=== PATIENT | male | born 1945 | race African-American/Black ===

== ENCOUNTER 2017-04-18 11:47 | Inpatient (IN) | payer MEDICARE, MEDICAID ==
[~2017-04-18] VITALS: Ht 170.2 cm; Wt 72.6 kg
[~2017-04-18 11:47] MED LIST: ALBU18HF2 IH; GLIM1TAB2 PO; LOSA50TA20 PO
[2017-04-18 14:10] LABS: BASOPHILS % 1.1 % (0.0-2.0); EOSINOPHILS % 4.6 % (0.0-5.0); HEMATOCRIT. 36.2 % (42.0-52.0); HEMOGLOBIN. 11.8 g/dL (14.0-18.0); LYMPHOCYTES % 28.4 % (20.0-50.0); MEAN CORPUSCULAR HEMOGLOBIN 25.1 pg (28.0-32.0); MEAN PLATELET VOLUME 8.5 fl (7.4-10.4); NEUTROPHILS % 58.9 % (40.0-76.0); PLATELET 198 x1000/uL (130-400); RED CELL DISTRIBUTION WIDTH 14.3 % (11.6-14.6)
[2017-04-18 14:16] LABS: INR 1.1; PROTHROMBIN TIME 11.4 sec
[2017-04-18 14:17] LABS: CLARITY URINE CLEAR (CLEAR); COLOR URINE YELLOW (YELLOW); GLUCOSE URINE NEGATIVE (NEGATIVE); KETONES URINE NEGATIVE (NEGATIVE); LEUKOCYTE ESTERASE URINE NEGATIVE (NEGATIVE); NITRITE URINE NEGATIVE (NEGATIVE); OCCULT BLOOD URINE TRACE (NEGATIVE); PH URINE 5.5 (4.5-8.0); PROTEIN URINE 1+ (NEGATIVE); SPECIFIC GRAVITY URINE 1.023 (1.005-1.030); UROBILINOGEN URINE 0.2 E.U./dL (0.2-1.0)
[2017-04-18 14:24] LABS: CARBON DIOXIDE 30 mEq/L (21-32); CHLORIDE 101 mEq/L (98-107); ETHANOL BLOOD < 10 mg/dL
[2017-04-18 14:26] LABS: TROPONIN I < 0.02 ng/mL (0.00-0.04)
[2017-04-18] MEDS ORDERED: CLONIDINE 0.1MG TABLET PO ONE (14:30)
[2017-04-18 14:53] LABS: *AMPHETAMINES SCREEN URINE NEGATIVE (NEGATIVE); *BARBITURATES SCREEN URINE NEGATIVE (NEGATIVE); *BENZODIAZEPINES SCREEN URINE NEGATIVE (NEGATIVE); *COCAINE SCREEN URINE NEGATIVE (NEGATIVE); CANNABINOID URINE SCREEN NEGATIVE (NEGATIVE); METHADONE URINE SCREEN NEGATIVE (NEGATIVE); OPIATES URINE SCREEN NEGATIVE (NEGATIVE); PHENCYCLIDINE URINE SCREEN NEGATIVE (NEGATIVE)
[2017-04-18 17:27] VITALS: BP 113/78
[2017-04-18 17:28] VITALS: BP 113/78
[2017-04-18] MEDS ORDERED: LISI-604 PO (17:44)
[2017-04-18 18:00] VITALS: BP 163/77
[2017-04-18] MEDS ORDERED: CLONIDINE 0.1MG TABLET PO PRN (18:30)
[2017-04-18] MEDS ORDERED: INSULIN LISPRO 100 UNITS/ML SUBCUT SCH (18:30)
[2017-04-18] MEDS ORDERED: DEXTROSE 50% WATER 50ML SYRINGE IV PRN (19:15)
[2017-04-18] MEDS: LOSARTAN POTASSIUM 100 MG TABLET PO SCH (19:28)
[2017-04-18 20:00] VITALS: BP 148/81
[2017-04-18] MEDS: NIFEDIPINE XL 60MG TAB PO SCH (20:00)
[2017-04-18] MEDS: BLOOD SUGAR DIAGNOSTIC STRIP TEST SCH (20:55)
[2017-04-18] MEDS: INSULIN LISPRO (LOW DOSE) 100 UNITS/ML SUBCUT SCH (20:55)
[2017-04-18 22:00] VITALS: BP 112/46
[2017-04-19] VITALS (15 sets, daily range): BP systolic 113–155; BP diastolic 57–103
[2017-04-19] MEDS: BLOOD SUGAR DIAGNOSTIC STRIP TEST SCH ×4 (06:15→21:00)
[2017-04-19] MEDS: INSULIN LISPRO (LOW DOSE) 100 UNITS/ML SUBCUT SCH ×4 (06:32→21:00)
[2017-04-19 06:38] LABS: HEMATOCRIT. 34.6 % (42.0-52.0); HEMOGLOBIN. 11.5 g/dL (14.0-18.0); MEAN CORPUSCULAR HEMOGLOBIN 25.3 pg (28.0-32.0); MEAN CORPUSCULAR VOLUME 76.3 fL (80.0-94.0); PLATELET 181 x1000/uL (130-400); RED BLOOD CELL COUNT 4.54 mill/uL (4.7-6.1); RED CELL DISTRIBUTION WIDTH 14.2 % (11.6-14.6)
[2017-04-19 06:42] LABS: CARBON DIOXIDE 29 mEq/L (21-32); CHLORIDE 102 mEq/L (98-107); HDL CHOLESTEROL 62 mg/dL (40-59); LDL CHOLESTEROL 60 mg/dL (5-100); T4 FREE 1.26 ng/dL (0.76-1.46); TROPONIN I < 0.02 ng/mL (0.00-0.04)
[2017-04-19] MEDS: IPRATROPIUM/ALBUTEROL 0.5-3(2.5)MG/3ML NEB HHN SCH ×4 (08:05→21:32)
[2017-04-19] MEDS: LOSARTAN POTASSIUM 100 MG TABLET PO SCH (08:17)
[2017-04-19] MEDS: NIFEDIPINE XL 60MG TAB PO SCH (08:17)
[2017-04-19] MEDS ORDERED: DOXAZOSIN MESYLATE 2MG TABLET PO NR (09:45)
[2017-04-19] MEDS ORDERED: COSYNTROPIN 0.25MG/ML VIAL IV NR (10:10)
[2017-04-19] MEDS: ASPIRIN 81MG EC TABLET PO SCH (11:40)
[2017-04-19] MEDS ORDERED: REGADENOSON 0.4 MG/5 ML IV NR (15:00)
[2017-04-19] MEDS: DOXAZOSIN MESYLATE 2MG TABLET PO SCH (16:10)
[2017-04-19 16:47] LABS: ATYPICAL LYMPHOCYTES 1; PLATELET ESTIMATE NORMAL
[2017-04-19 19:17] LABS: *AMPHETAMINES SCREEN URINE NEGATIVE (NEGATIVE); *BARBITURATES SCREEN URINE NEGATIVE (NEGATIVE); *BENZODIAZEPINES SCREEN URINE NEGATIVE (NEGATIVE); *COCAINE SCREEN URINE NEGATIVE (NEGATIVE); CANNABINOID URINE SCREEN NEGATIVE (NEGATIVE); METHADONE URINE SCREEN NEGATIVE (NEGATIVE); OPIATES URINE SCREEN NEGATIVE (NEGATIVE); PHENCYCLIDINE URINE SCREEN NEGATIVE (NEGATIVE)
[2017-04-20] VITALS (14 sets, daily range): BP systolic 108–168; BP diastolic 43–94
[2017-04-20] MEDS: TIMOLOL MALEATE 0.5% OPHTH DROPS 5ML EACHEYE SCH ×3 (00:13→21:00)
[2017-04-20] MEDS: IPRATROPIUM/ALBUTEROL 0.5-3(2.5)MG/3ML NEB HHN SCH ×2 (01:59→20:06)
[2017-04-20 06:25] LABS: CHLORIDE 100 mEq/L (98-107)
[2017-04-20 06:40] LABS: EOSINOPHILS % 4.8 % (0.0-5.0); HEMATOCRIT. 39.4 % (42.0-52.0); HEMOGLOBIN. 12.9 g/dL (14.0-18.0); LYMPHOCYTES % 29.5 % (20.0-50.0); MEAN CORPUSCULAR HEMOGLOBIN 24.9 pg (28.0-32.0); MEAN CORPUSCULAR VOLUME 76.1 fL (80.0-94.0); MEAN PLATELET VOLUME 8.5 fl (7.4-10.4); MONOCYTES % 7.3 % (2.0-8.0); NEUTROPHILS % 57.4 % (40.0-76.0); PLATELET 208 x1000/uL (130-400); RED BLOOD CELL COUNT 5.17 mill/uL (4.7-6.1); RED CELL DISTRIBUTION WIDTH 14.4 % (11.6-14.6)
[2017-04-20] MEDS: INSULIN LISPRO (LOW DOSE) 100 UNITS/ML SUBCUT SCH ×4 (06:41→21:03)
[2017-04-20] MEDS: BLOOD SUGAR DIAGNOSTIC STRIP TEST SCH ×4 (06:41→21:00)
[2017-04-20 07:00] LABS: CARBON DIOXIDE 25 mEq/L (21-32); TROPONIN I < 0.02 ng/mL (0.00-0.04)
[2017-04-20 08:19] LABS: ALBUMIN 3.4 g/dL (2.9-4.4); ALPHA-1-GLOBULIN 0.2 g/dL (0.0-0.4); ALPHA-2-GLOBULIN 0.7 g/dL (0.4-1.0); GAMMA GLOBULINS 1.4 g/dL (0.4-1.8); GLOBULIN TOTAL 3.4 g/dL (2.2-3.9); M-SPIKE Not Observed g/dL (Not Observed); TOTAL PROTEIN SERUM 6.8 g/dL (6.0-8.5)
[2017-04-20] MEDS ORDERED: REGADENOSON 0.4 MG/5 ML IV ONE (08:34)
[2017-04-20] MEDS ORDERED: NITROGLYCERIN 50MCG/ML 10ML VIAL (CATH LAB) IV ONE (09:44)
[2017-04-20] MEDS ORDERED: NICARDIPINE 100MCG/ML 10ML VIAL (CATH LAB) IV ONE (09:44)
[2017-04-20] MEDS: DOXAZOSIN MESYLATE 2MG TABLET PO SCH ×2 (10:00→18:14)
[2017-04-20 10:09] LABS: *CREATININE RANDOM URINE 109.8 mg/dL (Not Estab.); MICROALBUMIN RANDOM URINE 39.2 ug/mL (Not Estab.); MICROALBUMIN/CREATININE RATIO 35.7 mg/g creat (0.0-30.0)
[2017-04-20] MEDS: LOSARTAN POTASSIUM 100 MG TABLET PO SCH (10:16)
[2017-04-20] MEDS: ASPIRIN 81MG EC TABLET PO SCH (10:16)
[2017-04-20] MEDS: NIFEDIPINE XL 60MG TAB PO SCH (10:17)
[2017-04-20] MEDS ORDERED: FENTANYL CITRATE/PF 50MCG/ML 2ML VIAL ONE (12:05)
[2017-04-20] MEDS ORDERED: MIDAZOLAM HCL 2 MG/2 ML VIAL ONE (12:05)
[2017-04-20] MEDS ORDERED: LIDOCAINE HCL 1% 20ML VIAL (Pyxis) INJ ONE (12:06)
[2017-04-20] MEDS ORDERED: IODIXANOL 320MG/ML 100 ML BOTTLE IV ONE ×2 (12:06→14:21)
[2017-04-20] MEDS ORDERED: ASPIRIN/SOD BICARB/CITRIC ACID 324MG TAB EFF ONE (12:12)
[2017-04-20] MEDS: SODIUM CHLORIDE 0.45% 1,000 ML IV SCH ×2 (12:33→16:31)
[2017-04-20] MEDS ORDERED: HEPARIN SODIUM 1,000 UNIT/1ML VIAL IV ONE ×3 (12:39→13:58)
[2017-04-20] MEDS ORDERED: IOVERSOL 240MG/ML 100ML BOTTLE IV ONE (13:59)
[2017-04-20] MEDS ORDERED: ATROPINE SULFATE 0.1MG/ML 10ML DISP.SYRIN ONE (14:08)
[2017-04-20] MEDS ORDERED: CLOPIDOGREL 75MG TABLET ONE (14:36)
[2017-04-20] MEDS ORDERED: ACETAMINOPHEN 325MG TABLET PO PRN (14:45)
[2017-04-20] MEDS ORDERED: ATROPINE SULFATE 1MG/10ML SYR IV PRN (14:45)
[2017-04-20] MEDS ORDERED: MORPHINE SULFATE 2 MG/ML CPJ (NOT FOR IM USE) IV PRN (14:45)
[2017-04-20] MEDS ORDERED: CLOPIDOGREL 75MG TABLET PO ONE (14:45)
[2017-04-20] MEDS ORDERED: SODIUM CHLORIDE 0.45% 1,000 ML IV ONE (14:45)
[2017-04-20] MEDS ORDERED: ONDANSETRON HCL 4MG/2ML VIAL IV PRN (14:45)
[2017-04-21] VITALS (7 sets, daily range): BP systolic 99–127; BP diastolic 42–65
[2017-04-21] MEDS: SODIUM CHLORIDE 0.45% 1,000 ML IV SCH ×2 (00:05→06:45)
[2017-04-21] MEDS: IPRATROPIUM/ALBUTEROL 0.5-3(2.5)MG/3ML NEB HHN SCH ×2 (01:27→07:22)
[2017-04-21 06:04] LABS: CARBON DIOXIDE 25 mEq/L (21-32); CHLORIDE 102 mEq/L (98-107)
[2017-04-21 06:29] LABS: BASOPHILS % 0.9 % (0.0-2.0); EOSINOPHILS % 4.6 % (0.0-5.0); HEMATOCRIT. 39.5 % (42.0-52.0); HEMOGLOBIN. 12.7 g/dL (14.0-18.0); LYMPHOCYTES % 36.2 % (20.0-50.0); MEAN CORPUSCULAR HEMOGLOBIN 24.9 pg (28.0-32.0); MEAN CORPUSCULAR VOLUME 77.4 fL (80.0-94.0); MEAN PLATELET VOLUME 8.3 fl (7.4-10.4); MONOCYTES % 9.4 % (2.0-8.0); NEUTROPHILS % 48.9 % (40.0-76.0); PLATELET 192 x1000/uL (130-400); RED CELL DISTRIBUTION WIDTH 14.7 % (11.6-14.6)
[2017-04-21] MEDS: BLOOD SUGAR DIAGNOSTIC STRIP TEST SCH (06:50)
[2017-04-21] MEDS: INSULIN LISPRO (LOW DOSE) 100 UNITS/ML SUBCUT SCH (06:50)
[2017-04-21] MEDS: DOXAZOSIN MESYLATE 2MG TABLET PO SCH (08:11)
[2017-04-21] MEDS: NIFEDIPINE XL 60MG TAB PO SCH (08:11)
[2017-04-21] MEDS: TIMOLOL MALEATE 0.5% OPHTH DROPS 5ML EACHEYE SCH (08:11)
[2017-04-21] MEDS: LOSARTAN POTASSIUM 100 MG TABLET PO SCH (08:12)
[2017-04-21] MEDS ORDERED: CLOPIDOGREL 75MG TABLET PO SCH (09:00)
[2017-04-21] MEDS ORDERED: ASPIRIN 325MG TABLET PO SCH (09:00)
[2017-04-23 13:12] LABS: DOPAMINE PLASMA <30 pg/mL (0-48); EPINEPHRINE PLASMA <15 pg/mL (0-62); NOREPINEPHRINE PLASMA 214 pg/mL (0-874)
[2017-04-25 06:15] LABS: ALDOSTERONE 3.9 ng/dL (0.0-30.0)
== END 2017-04-21 12:25 | disposition home or self-care (01) | DRG 247 ==
LOC: ER 11:47 → 3WST 14:31 → ENRESERV 15:57
PROVIDERS: ADMIT Internal Medicine Endocrinology, Diabetes & Metabolism; ATTEND Internal Medicine Endocrinology, Diabetes & Metabolism
PROC: 027034Z Dilation of Coronary Artery, One Artery with Drug-eluting Intraluminal Device, Percutaneous Approach (ICD-10-PCS; principal; 2017-04-20)
PROC: 4A023N7 Measurement of Cardiac Sampling and Pressure, Left Heart, Percutaneous Approach (ICD-10-PCS; 2017-04-20)
PROC: B2151ZZ Fluoroscopy of Left Heart using Low Osmolar Contrast (ICD-10-PCS; 2017-04-20)
PROC: B2111ZZ Fluoroscopy of Multiple Coronary Arteries using Low Osmolar Contrast (ICD-10-PCS; 2017-04-20)
DX: I16.0 Hypertensive urgency (principal); N17.9 Acute kidney failure, unspecified; I69.351 Hemiplegia and hemiparesis following cerebral infarction affecting right dominant side; I13.10 Hypertensive heart and chronic kidney disease without heart failure, with stage 1 through stage 4 chronic kidney disease, or unspecified chronic kidney disease; I25.10 Atherosclerotic heart disease of native coronary artery without angina pectoris; D64.9 Anemia, unspecified; D72.819 Decreased white blood cell count, unspecified; E11.22 Type 2 diabetes mellitus with diabetic chronic kidney disease; E78.00 Pure hypercholesterolemia, unspecified; E86.0 Dehydration; E78.5 Hyperlipidemia, unspecified; H10.10 Acute atopic conjunctivitis, unspecified eye; H40.10X0 Unspecified open-angle glaucoma, stage unspecified; J44.9 Chronic obstructive pulmonary disease, unspecified; N18.2 Chronic kidney disease, stage 2 (mild); Z82.0 Family history of epilepsy and other diseases of the nervous system; Z79.899 Other long term (current) drug therapy; Z83.3 Family history of diabetes mellitus; Z87.891 Personal history of nicotine dependence; Z91.14 Patient's other noncompliance with medication regimen
CPT/HCPCS: 36415; 70450; 71010; 78452; 80048; 80053; 80061; 80305; 81001; 82024; 82043; 82088; 82533; 82570; 82607; 82962; 83036; 83735; 83835; 83880; 83921; 84155; 84165; 84439; 84443; 84484; 85007; 85025; 85027; 85347; 85610; 87077; 87086; 87186; 92928; 93005; 93017; 93306; 93458; 93880; 94640; 99285; A9500; C1725; C1769; C1887; C1893; G0482; J0461; J0834; J1644; J1815; J2250; J2785; J3010; J3490; J7620; Q9967

== ENCOUNTER 2017-06-26 06:36 | Inpatient (IN) | payer MEDICARE, MEDICAID ==
[~2017-06-26] VITALS: Ht 172.7 cm; Wt 75.9 kg
[2017-06-26] VITALS (36 sets, daily range): BP systolic 115–171; BP diastolic 51–120
[~2017-06-26 06:36] MED LIST changes: -LOSA50TA20 PO
[2017-06-26] MEDS ORDERED: LOSA100T14 PO (08:12)
[2017-06-26] MEDS ORDERED: CLOP75TA16 PO (08:12)
[2017-06-26] MEDS ORDERED: ASPI-1159 PO (08:12)
[2017-06-26] MEDS ORDERED: NIFE30TA94 PO (08:12)
[2017-06-26] MEDS ORDERED: COR3 PO (08:12)
[2017-06-26] MEDS ORDERED: IODIXANOL 320MG/ML 100 ML BOTTLE IV ONE ×2 (08:29→09:29)
[2017-06-26] MEDS ORDERED: LIDOCAINE HCL 1% 20ML VIAL (Pyxis) INJ ONE (08:30)
[2017-06-26] MEDS ORDERED: MIDAZOLAM HCL 2 MG/2 ML VIAL ONE ×2 (08:32→09:32)
[2017-06-26] MEDS ORDERED: FENTANYL CITRATE/PF 50MCG/ML 2ML VIAL ONE (08:32)
[2017-06-26] MEDS ORDERED: ASPIRIN/SOD BICARB/CITRIC ACID 324MG TAB EFF ONE (08:35)
[2017-06-26 09:00] LABS: CARBON DIOXIDE 29 mEq/L (21-32); CHLORIDE 104 mEq/L (98-107)
[2017-06-26] MEDS ORDERED: IOVERSOL 240MG/ML 100ML BOTTLE IV ONE (09:13)
[2017-06-26] MEDS ORDERED: CLOPIDOGREL 75MG TABLET ONE (09:56)
[2017-06-26] MEDS ORDERED: MORPHINE SULFATE 4 MG/ML CPJ (NOT FOR IM USE) IV PRN (10:00)
[2017-06-26] MEDS ORDERED: ATROPINE SULFATE 1MG/10ML SYR IV PRN (10:00)
[2017-06-26] MEDS ORDERED: ACETAMINOPHEN 325MG TABLET PO PRN (10:00)
[2017-06-26] MEDS ORDERED: DEXTROSE 50% WATER 50ML SYRINGE IV PRN (10:15)
[2017-06-26] MEDS ORDERED: CLOPIDOGREL 75MG TABLET PO NR (11:00)
[2017-06-26] MEDS: SODIUM CHLORIDE 0.45% 1,000 ML IV NR ×2 (11:42→17:28)
[2017-06-26] MEDS: BLOOD SUGAR DIAGNOSTIC STRIP TEST SCH ×3 (11:43→20:31)
[2017-06-26] MEDS: INSULIN LISPRO 100 UNITS/ML SUBCUT SCH ×3 (11:43→20:31)
[2017-06-26] MEDS: LOSARTAN POTASSIUM 50 MG TABLET PO SCH ×2 (12:06→21:25)
[2017-06-26] MEDS: AMLODIPINE 5MG TABLET PO SCH ×2 (12:07→22:10)
[2017-06-26] MEDS: CARVEDILOL 3.125 MG TABLET PO SCH ×2 (12:21→21:23)
[2017-06-26] MEDS ORDERED: HEPARIN SODIUM 1,000 UNIT/1ML VIAL IV ONE (15:52)
[2017-06-27] VITALS (9 sets, daily range): BP systolic 110–149; BP diastolic 44–67
[2017-06-27] MEDS: BLOOD SUGAR DIAGNOSTIC STRIP TEST SCH (06:39)
[2017-06-27] MEDS: INSULIN LISPRO 100 UNITS/ML SUBCUT SCH (06:40)
[2017-06-27 07:19] LABS: BASOPHILS % 0.8 % (0.0-2.0); EOSINOPHILS % 4.2 % (0.0-5.0); HEMATOCRIT. 33.7 % (42.0-52.0); HEMOGLOBIN. 11.4 g/dL (14.0-18.0); LYMPHOCYTES % 14.6 % (20.0-50.0); MEAN CORPUSCULAR HEMOGLOBIN 25.9 pg (28.0-32.0); MEAN CORPUSCULAR VOLUME 76.8 fL (80.0-94.0); MEAN PLATELET VOLUME 8.2 fl (7.4-10.4); MONOCYTES % 5.9 % (2.0-8.0); NEUTROPHILS % 74.5 % (40.0-76.0); PLATELET 186 x1000/uL (130-400); RED BLOOD CELL COUNT 4.39 mill/uL (4.7-6.1)
[2017-06-27 07:49] LABS: CARBON DIOXIDE 28 mEq/L (21-32); CHLORIDE 104 mEq/L (98-107)
[2017-06-27] MEDS: LOSARTAN POTASSIUM 50 MG TABLET PO SCH (08:25)
[2017-06-27] MEDS: AMLODIPINE 5MG TABLET PO SCH (08:26)
[2017-06-27] MEDS: CARVEDILOL 3.125 MG TABLET PO SCH (08:26)
[2017-06-27] MEDS ORDERED: CLOPIDOGREL 75MG TABLET PO SCH (09:00)
[2017-06-27] MEDS ORDERED: ASPIRIN 325MG TABLET PO SCH (09:00)
[2017-06-27] MEDS ORDERED: ASPI-1159 PO (10:00)
[2017-06-27] MEDS ORDERED: ASPI-864 PO (10:14)
== END 2017-06-27 11:30 | disposition home or self-care (01) | DRG 247 ==
LOC: CCL 06:36 → 3WST 06:37
PROVIDERS: ADMIT Specialist; ATTEND Specialist
PROC: 027135Z Dilation of Coronary Artery, Two Arteries with Two Drug-eluting Intraluminal Devices, Percutaneous Approach (ICD-10-PCS; principal; 2017-06-26)
PROC: 4A023N7 Measurement of Cardiac Sampling and Pressure, Left Heart, Percutaneous Approach (ICD-10-PCS; 2017-06-26)
PROC: B2111ZZ Fluoroscopy of Multiple Coronary Arteries using Low Osmolar Contrast (ICD-10-PCS; 2017-06-26)
PROC: B2151ZZ Fluoroscopy of Left Heart using Low Osmolar Contrast (ICD-10-PCS; 2017-06-26)
DX: I25.10 Atherosclerotic heart disease of native coronary artery without angina pectoris (principal); E11.22 Type 2 diabetes mellitus with diabetic chronic kidney disease; I13.10 Hypertensive heart and chronic kidney disease without heart failure, with stage 1 through stage 4 chronic kidney disease, or unspecified chronic kidney disease; D64.9 Anemia, unspecified; E78.00 Pure hypercholesterolemia, unspecified; E11.51 Type 2 diabetes mellitus with diabetic peripheral angiopathy without gangrene; J44.9 Chronic obstructive pulmonary disease, unspecified; N18.2 Chronic kidney disease, stage 2 (mild); Z79.02 Long term (current) use of antithrombotics/antiplatelets; I25.2 Old myocardial infarction; Z79.899 Other long term (current) drug therapy
CPT/HCPCS: 36415; 80048; 82962; 85025; 85347; 85730; 92928; 93005; 93458; 93571; C1725; C1726; C1769; C1887; C1893; J1644; J2250; J3010; J3490; Q9967

== ENCOUNTER 2017-11-02 05:38 | Emergency (ER) | payer MEDICARE, MEDICAID ==
[~2017-11-02] VITALS: Ht 170.2 cm; Wt 76.0 kg
[~2017-11-02 05:38] MED LIST changes: +ASPI-864 PO; +CLOP75TA16 PO; +COR3 PO; +LOSA100T14 PO; +NIFE30TA94 PO
[2017-11-02 08:02] VITALS: BP 172/73
== END 2017-11-02 08:07 | disposition home or self-care (01) ==
LOC: ER 06:10
DX: J30.9 Allergic rhinitis, unspecified (principal); E11.9 Type 2 diabetes mellitus without complications; I10 Essential (primary) hypertension; H57.8 Other specified disorders of eye and adnexa; Z87.891 Personal history of nicotine dependence; Z79.82 Long term (current) use of aspirin; Z95.5 Presence of coronary angioplasty implant and graft; Z88.8 Allergy status to other drugs, medicaments and biological substances
CPT/HCPCS: 82962; 99283

== ENCOUNTER 2018-02-10 00:36 | Inpatient (IN) | payer MEDICARE, MEDICAID ==
[~2018-02-10] VITALS: Ht 170.2 cm; Wt 79.8 kg
[2018-02-10] MEDS ORDERED: MORPHINE SULFATE 4 MG/ML CPJ (NOT FOR IM USE) IV STA (02:44)
[2018-02-10] MEDS ORDERED: ASPIRIN 81MG TABLET PO ONE (02:45)
[2018-02-10 03:17] LABS: EOSINOPHILS % 5.2 % (0.0-5.0); HEMATOCRIT. 37.5 % (42.0-52.0); HEMOGLOBIN. 12.1 g/dL (14.0-18.0); LYMPHOCYTES % 26.4 % (20.0-50.0); MEAN CORPUSCULAR HEMOGLOBIN 25.6 pg (28.0-32.0); MEAN CORPUSCULAR VOLUME 79.3 fL (80.0-94.0); MEAN PLATELET VOLUME 8.1 fl (7.4-10.4); MONOCYTES % 7.4 % (2.0-8.0); PLATELET 204 x1000/uL (130-400); RED BLOOD CELL COUNT 4.74 mill/uL (4.7-6.1); RED CELL DISTRIBUTION WIDTH 14.6 % (11.6-14.6)
[2018-02-10 03:23] LABS: CHLORIDE 104 mEq/L (98-107); PROTHROMBIN TIME 10.7 sec (9.4-11.6)
[2018-02-10 03:28] LABS: AMMONIA 31 uMol/L (<32); ETHANOL BLOOD < 10 mg/dL
[2018-02-10] MEDS ORDERED: SODIUM CHLORIDE 0.9% 1,000 ML IV NR (04:30)
[2018-02-10 05:46] LABS: CLARITY URINE CLEAR (CLEAR); COLOR URINE YELLOW (YELLOW); KETONES URINE NEGATIVE (NEGATIVE); LEUKOCYTE ESTERASE URINE NEGATIVE (NEGATIVE); NITRITE URINE NEGATIVE (NEGATIVE); OCCULT BLOOD URINE NEGATIVE (NEGATIVE); PROTEIN URINE NEGATIVE (NEGATIVE); SPECIFIC GRAVITY URINE 1.019 (1.005-1.030); UROBILINOGEN URINE 0.2 E.U./dL (0.2-1.0)
[2018-02-10 05:59] LABS: *AMPHETAMINES SCREEN URINE NEGATIVE (NEGATIVE); *BARBITURATES SCREEN URINE NEGATIVE (NEGATIVE); *BENZODIAZEPINES SCREEN URINE NEGATIVE (NEGATIVE); *COCAINE SCREEN URINE NEGATIVE (NEGATIVE); METHADONE URINE SCREEN NEGATIVE (NEGATIVE)
[2018-02-10 06:00] LABS: CANNABINOID URINE SCREEN NEGATIVE (NEGATIVE); OPIATES URINE SCREEN PRESUMTIVE POSITIVE (NEGATIVE); PHENCYCLIDINE URINE SCREEN NEGATIVE (NEGATIVE)
[2018-02-10] MEDS ORDERED: LIDOCAINE HCL 1% 20ML VIAL (Pyxis) INJ ONE (07:11)
[2018-02-10] MEDS ORDERED: IOHEXOL-350 100 ML BOTTLE ONE ×2 (07:43→09:01)
[2018-02-10 10:00] VITALS: BP 156/76
[2018-02-10 11:02] VITALS: BP 156/76
[2018-02-10] MEDS ORDERED: AMLO10TA4 MT (11:18)
[2018-02-10 12:00] VITALS: BP 151/67
[2018-02-10] MEDS ORDERED: ONDANSETRON HCL 4MG/2ML VIAL IV PRN (13:00)
[2018-02-10] MEDS ORDERED: GUAIFENESIN 200MG/10ML SUGAR FREE UDC PO PRN (13:00)
[2018-02-10] MEDS ORDERED: DEXTROSE 50% WATER 50ML SYRINGE IV PRN ×2 (13:30)
[2018-02-10] MEDS: AMLODIPINE 10MG TABLET PO SCH (13:41)
[2018-02-10] MEDS: LOSARTAN POTASSIUM 100 MG TABLET PO SCH (13:41)
[2018-02-10] MEDS: CLOPIDOGREL 75MG TABLET PO SCH (13:42)
[2018-02-10] MEDS ORDERED: INSULIN LISPRO 100 UNITS/ML SUBCUT NR (14:00)
[2018-02-10] MEDS: GLIMEPIRIDE 1MG TABLET PO SCH (17:03)
[2018-02-10] MEDS: CLONIDINE 0.1MG TABLET PO PRN (17:06)
[2018-02-10] MEDS: BLOOD SUGAR DIAGNOSTIC STRIP TEST SCH ×2 (18:14→20:50)
[2018-02-10] MEDS: INSULIN LISPRO 100 UNITS/ML SUBCUT SCH ×2 (18:37→20:50)
[2018-02-10 20:00] VITALS: BP_SYST 129; BP_SYST 133; BP_DIAS 54; BP_DIAS 61; BP_DIAS 66
[2018-02-10] MEDS: CARVEDILOL 3.125 MG TABLET PO SCH (20:46)
[2018-02-11] VITALS (7 sets, daily range): BP systolic 118–167; BP diastolic 47–79
[2018-02-11 06:51] LABS: BASOPHILS % 0.9 % (0.0-2.0); EOSINOPHILS % 6.2 % (0.0-5.0); HEMATOCRIT. 32.8 % (42.0-52.0); HEMOGLOBIN. 10.8 g/dL (14.0-18.0); LYMPHOCYTES % 22.1 % (20.0-50.0); MEAN CORPUSCULAR HEMOGLOBIN 25.7 pg (28.0-32.0); MEAN CORPUSCULAR VOLUME 78.3 fL (80.0-94.0); MEAN PLATELET VOLUME 7.9 fl (7.4-10.4); MONOCYTES % 8.4 % (2.0-8.0); NEUTROPHILS % 62.4 % (40.0-76.0); PLATELET 177 x1000/uL (130-400); RED BLOOD CELL COUNT 4.19 mill/uL (4.7-6.1); RED CELL DISTRIBUTION WIDTH 14.7 % (11.6-14.6)
[2018-02-11] MEDS: CLONIDINE 0.1MG TABLET PO PRN (07:40)
[2018-02-11] MEDS: BLOOD SUGAR DIAGNOSTIC STRIP TEST SCH ×4 (07:40→21:30)
[2018-02-11] MEDS: INSULIN LISPRO 100 UNITS/ML SUBCUT SCH ×4 (08:10→21:31)
[2018-02-11] MEDS: PANTOPRAZOLE 40MG DR TABLET PO SCH (08:44)
[2018-02-11] MEDS: ASPIRIN 81MG EC TABLET PO SCH (08:44)
[2018-02-11] MEDS: AMLODIPINE 10MG TABLET PO SCH (08:50)
[2018-02-11] MEDS: GLIMEPIRIDE 1MG TABLET PO SCH ×2 (08:52→16:09)
[2018-02-11] MEDS: CLOPIDOGREL 75MG TABLET PO SCH (08:52)
[2018-02-11] MEDS: CARVEDILOL 3.125 MG TABLET PO SCH ×2 (08:52→21:30)
[2018-02-11] MEDS: LOSARTAN POTASSIUM 100 MG TABLET PO SCH (08:52)
[2018-02-11] MEDS ORDERED: ONDANSETRON HCL 4MG TABLET PO PRN (16:00)
[2018-02-11 16:58] LABS: CREATINE KINASE 231 IU/L (39-308)
[2018-02-11] MEDS ORDERED: VANCOMYCIN 1500MG in DEXTROSE 5% WATER 250ML IV NR (18:00)
[2018-02-12] VITALS: BP 172/71
[2018-02-12] MEDS: ACETAMINOPHEN 325MG TABLET PO PRN ×2 (00:59→20:02)
[2018-02-12 04:00] VITALS: BP 164/68
[2018-02-12] MEDS: CLONIDINE 0.1MG TABLET PO PRN ×2 (06:15→20:03)
[2018-02-12] MEDS: BLOOD SUGAR DIAGNOSTIC STRIP TEST SCH ×4 (06:32→21:12)
[2018-02-12 06:58] LABS: BASOPHILS % 0.5 % (0.0-2.0); EOSINOPHILS % 4.9 % (0.0-5.0); HEMATOCRIT. 31.9 % (42.0-52.0); HEMOGLOBIN. 10.7 g/dL (14.0-18.0); LYMPHOCYTES % 15.3 % (20.0-50.0); MEAN CORPUSCULAR HEMOGLOBIN 25.9 pg (28.0-32.0); MEAN CORPUSCULAR VOLUME 76.9 fL (80.0-94.0); MONOCYTES % 7.2 % (2.0-8.0); NEUTROPHILS % 72.1 % (40.0-76.0); PLATELET 182 x1000/uL (130-400); RED BLOOD CELL COUNT 4.15 mill/uL (4.7-6.1); RED CELL DISTRIBUTION WIDTH 14.7 % (11.6-14.6)
[2018-02-12 07:26] LABS: CHLORIDE 106 mEq/L (98-107)
[2018-02-12 07:43] LABS: LDL CHOLESTEROL 63 mg/dL (5-100)
[2018-02-12 07:44] LABS: CREATINE KINASE 215 IU/L (39-308); HDL CHOLESTEROL 67 mg/dL (40-59)
[2018-02-12 08:00] VITALS: BP 104/55
[2018-02-12] MEDS: INSULIN LISPRO 100 UNITS/ML SUBCUT SCH ×4 (08:10→21:13)
[2018-02-12] MEDS: LOSARTAN POTASSIUM 100 MG TABLET PO SCH (08:50)
[2018-02-12] MEDS: PANTOPRAZOLE 40MG DR TABLET PO SCH (08:50)
[2018-02-12] MEDS: GLIMEPIRIDE 1MG TABLET PO SCH ×2 (08:50→17:06)
[2018-02-12] MEDS: CLOPIDOGREL 75MG TABLET PO SCH (08:50)
[2018-02-12] MEDS: ASPIRIN 81MG EC TABLET PO SCH (08:50)
[2018-02-12] MEDS: CARVEDILOL 3.125 MG TABLET PO SCH ×2 (09:00→20:03)
[2018-02-12] MEDS: AMLODIPINE 10MG TABLET PO SCH (09:00)
[2018-02-12] MEDS ORDERED: VANCOMYCIN 750 MG PREMIX 150 ML IV SCH (11:00)
[2018-02-12 12:00] VITALS: BP_SYST 123; BP_SYST 146; BP_SYST 155; BP_DIAS 69; BP_DIAS 72; BP_DIAS 75
[2018-02-12 16:00] VITALS: BP 131/61
[2018-02-12] MEDS ORDERED: CLOPIDOGREL 75MG TABLET PO SCH (17:00)
[2018-02-12 17:23] LABS: TOTAL IRON BINDING CAPACITY 203 ug/dL (250-450)
[2018-02-12 17:57] LABS: VITAMIN B12 SERUM 630 pg/mL (211-911)
[2018-02-12 18:09] LABS: FOLIC ACID (FOLATE) SERUM > 20.00 ng/mL (>5.38)
[2018-02-12 20:00] VITALS: BP 174/78
[2018-02-13] VITALS: BP 160/68
[2018-02-13] MEDS ORDERED: VANCOMYCIN 1250MG in DEXTROSE 5% WATER 250ML IV SCH ×2
[2018-02-13 04:00] VITALS: BP 140/55
[2018-02-13] MEDS: BLOOD SUGAR DIAGNOSTIC STRIP TEST SCH ×2 (05:53→12:01)
[2018-02-13] MEDS: INSULIN LISPRO 100 UNITS/ML SUBCUT SCH ×2 (07:04→13:54)
[2018-02-13 07:25] LABS: BASOPHILS % 0.8 % (0.0-2.0); EOSINOPHILS % 5.8 % (0.0-5.0); HEMATOCRIT. 31.7 % (42.0-52.0); HEMOGLOBIN. 10.6 g/dL (14.0-18.0); LYMPHOCYTES % 24.9 % (20.0-50.0); MEAN CORPUSCULAR HEMOGLOBIN 25.7 pg (28.0-32.0); MEAN CORPUSCULAR VOLUME 77.2 fL (80.0-94.0); MEAN PLATELET VOLUME 8.3 fl (7.4-10.4); MONOCYTES % 7.9 % (2.0-8.0); NEUTROPHILS % 60.6 % (40.0-76.0); PLATELET 186 x1000/uL (130-400); RED BLOOD CELL COUNT 4.11 mill/uL (4.7-6.1); RED CELL DISTRIBUTION WIDTH 14.5 % (11.6-14.6)
[2018-02-13 07:55] LABS: CHLORIDE 104 mEq/L (98-107)
[2018-02-13 08:00] VITALS: BP 153/62
[2018-02-13] MEDS: ASPIRIN 81MG EC TABLET PO SCH (08:30)
[2018-02-13] MEDS: CARVEDILOL 3.125 MG TABLET PO SCH (08:30)
[2018-02-13] MEDS: GLIMEPIRIDE 1MG TABLET PO SCH (08:30)
[2018-02-13] MEDS: LOSARTAN POTASSIUM 100 MG TABLET PO SCH (08:31)
[2018-02-13] MEDS: AMLODIPINE 10MG TABLET PO SCH (08:31)
[2018-02-13] MEDS: CLOPIDOGREL 75MG TABLET PO SCH (08:31)
[2018-02-13] MEDS ORDERED: FAMOTIDINE 20MG TABLET PO SCH (09:00)
[2018-02-13 11:16] VITALS: BP 148/61
[2018-02-13 12:00] VITALS: BP 148/61
== END 2018-02-13 15:40 | disposition home or self-care (01) | DRG 74 ==
LOC: ER 00:36 → 7WST 06:30 → EDBEDREQ 06:33
PROVIDERS: ADMIT Internal Medicine Nephrology; ATTEND Internal Medicine Nephrology
PROC: 02HV33Z Insertion of Infusion Device into Superior Vena Cava, Percutaneous Approach (ICD-10-PCS; principal; 2018-02-10)
PROC: B548ZZA Ultrasonography of Superior Vena Cava, Guidance (ICD-10-PCS; 2018-02-10)
PROC: B5181ZA Fluoroscopy of Superior Vena Cava using Low Osmolar Contrast, Guidance (ICD-10-PCS; 2018-02-10)
PROC: 4A00X4Z Measurement of Central Nervous Electrical Activity, External Approach (ICD-10-PCS; 2018-02-10)
DX: G90.8 Other disorders of autonomic nervous system (principal); E11.22 Type 2 diabetes mellitus with diabetic chronic kidney disease; E11.65 Type 2 diabetes mellitus with hyperglycemia; W01.0XXA Fall on same level from slipping, tripping and stumbling without subsequent striking against object, initial encounter; D63.8 Anemia in other chronic diseases classified elsewhere; I13.10 Hypertensive heart and chronic kidney disease without heart failure, with stage 1 through stage 4 chronic kidney disease, or unspecified chronic kidney disease; N18.9 Chronic kidney disease, unspecified; E78.00 Pure hypercholesterolemia, unspecified; I25.10 Atherosclerotic heart disease of native coronary artery without angina pectoris; N40.0 Benign prostatic hyperplasia without lower urinary tract symptoms; Z95.5 Presence of coronary angioplasty implant and graft; Z79.02 Long term (current) use of antithrombotics/antiplatelets; Z87.891 Personal history of nicotine dependence; Z79.899 Other long term (current) drug therapy; Z79.84 Long term (current) use of oral hypoglycemic drugs; Y93.89 Activity, other specified; Y92.89 Other specified places as the place of occurrence of the external cause; Y99.8 Other external cause status; Z88.8 Allergy status to other drugs, medicaments and biological substances; Z79.82 Long term (current) use of aspirin; I69.398 Other sequelae of cerebral infarction
CPT/HCPCS: 36415; 36569; 70450; 70544; 70553; 71045; 71250; 71275; 74174; 74176; 76937; 77001; 80048; 80051; 80053; 80061; 80305; 81003; 82140; 82550; 82607; 82746; 82962; 83036; 83540; 83550; 83605; 83690; 83735; 83880; 84443; 84484; 85025; 85044; 85379; 85610; 87040; 87086; 93005; 93306; 93880; 93970; 96374; 97162; 97167; 99285; C1725; G0482; J1815; J2270; J3370; J3490; J7030; J7050; J7060; Q9967

== ENCOUNTER 2018-03-30 04:40 | Emergency (ER) | payer MEDICARE, MEDICAID ==
[~2018-03-30] VITALS: Ht 167.6 cm; Wt 79.0 kg
[~2018-03-30 04:40] MED LIST changes: +AMLO10TA4 MT
[2018-03-30 05:54] LABS: BASOPHILS % 0.9 % (0.0-2.0); EOSINOPHILS % 4.7 % (0.0-5.0); HEMATOCRIT. 38.2 % (42.0-52.0); HEMOGLOBIN. 12.3 g/dL (14.0-18.0); MEAN CORPUSCULAR HEMOGLOBIN 25.3 pg (28.0-32.0); MEAN CORPUSCULAR VOLUME 78.7 fL (80.0-94.0); MEAN PLATELET VOLUME 7.7 fl (7.4-10.4); MONOCYTES % 8.4 % (2.0-8.0); PLATELET 207 x1000/uL (130-400); RED BLOOD CELL COUNT 4.86 mill/uL (4.7-6.1); RED CELL DISTRIBUTION WIDTH 14.2 % (11.6-14.6)
[2018-03-30 05:56] LABS: CHLORIDE 106 mEq/L (98-107)
[2018-03-30] MEDS ORDERED: FLUORESCEIN SODIUM 1MG/STRIP LEFTEYE ONE (06:30)
[2018-03-30] MEDS ORDERED: TETRACAINE 0.5% OPHTH DROPS 4ML LEFTEYE ONE (06:30)
[2018-03-30] MEDS ORDERED: SODIUM CHLORIDE 0.9% 1,000 ML IV ONE (06:34)
[2018-03-30] MEDS ORDERED: MECLIZINE 25MG TABLET PO ONE (06:45)
[2018-03-30 11:15] VITALS: BP 161/70
== END 2018-03-30 11:17 | disposition home or self-care (01) ==
LOC: ER 04:40
DX: R42 Dizziness and giddiness (principal); I10 Essential (primary) hypertension; G93.89 Other specified disorders of brain; I69.351 Hemiplegia and hemiparesis following cerebral infarction affecting right dominant side; E11.9 Type 2 diabetes mellitus without complications; Z79.899 Other long term (current) drug therapy
CPT/HCPCS: 36415; 70450; 80053; 84484; 85025; 93005; 99285; C1893; J7030; J8597

== ENCOUNTER 2018-05-10 11:00 | Emergency (ER) | payer MEDICARE, MEDICAID ==
[~2018-05-10] VITALS: Ht 170.2 cm; Wt 66.0 kg
[2018-05-10] MEDS ORDERED: ALBUTEROL (0.083%) 2.5MG/3ML NEB HHN STA (11:49)
[2018-05-10] MEDS ORDERED: IPRATROPIUM BROMIDE (0.02%) 0.5MG/2.5ML NEB HHN STA (11:49)
[2018-05-10 13:13] LABS: BASOPHILS % 0.6 % (0.0-2.0); EOSINOPHILS % 3.8 % (0.0-5.0); HEMATOCRIT. 38.3 % (42.0-52.0); HEMOGLOBIN. 12.4 g/dL (14.0-18.0); LYMPHOCYTES % 25.7 % (20.0-50.0); MEAN CORPUSCULAR HEMOGLOBIN 25.2 pg (28.0-32.0); MEAN CORPUSCULAR VOLUME 77.9 fL (80.0-94.0); MEAN PLATELET VOLUME 7.8 fl (7.4-10.4); MONOCYTES % 8.4 % (2.0-8.0); NEUTROPHILS % 61.5 % (40.0-76.0); PLATELET 195 x1000/uL (130-400); RED BLOOD CELL COUNT 4.92 mill/uL (4.7-6.1); RED CELL DISTRIBUTION WIDTH 14.4 % (11.6-14.6)
[2018-05-10 13:16] LABS: CHLORIDE 103 mEq/L (98-107)
[2018-05-10 13:22] LABS: ETHANOL BLOOD < 10 mg/dL
[2018-05-10 16:12] VITALS: BP 138/63
== END 2018-05-10 16:13 | disposition home or self-care (01) ==
LOC: ER 11:35
DX: J44.1 Chronic obstructive pulmonary disease with (acute) exacerbation (principal); I10 Essential (primary) hypertension; E11.9 Type 2 diabetes mellitus without complications; Z86.73 Personal history of transient ischemic attack (TIA), and cerebral infarction without residual deficits; Z87.891 Personal history of nicotine dependence; Z88.8 Allergy status to other drugs, medicaments and biological substances; Z79.899 Other long term (current) drug therapy
CPT/HCPCS: 36415; 71045; 80048; 83690; 83880; 84484; 85025; 93005; 94640; 99285; G0482; J7611

== ENCOUNTER 2018-06-17 06:26 | Emergency (ER) | payer MEDICARE, MEDICAID ==
[~2018-06-17] VITALS: Ht 167.6 cm; Wt 79.0 kg
[2018-06-17] MEDS ORDERED: FLUORESCEIN SODIUM 1MG/STRIP OP ONE (08:45)
[2018-06-17] MEDS ORDERED: TETRACAINE 0.5% OPHTH DROPS 4ML OP ONE (08:45)
[2018-06-17 09:23] VITALS: BP 130/76
== END 2018-06-17 09:24 | disposition home or self-care (01) ==
LOC: ER 06:26 → SUPCPDRO 17:22
DX: H57.12 Ocular pain, left eye (principal); Z98.890 Other specified postprocedural states; Z79.82 Long term (current) use of aspirin; Z79.899 Other long term (current) drug therapy; Z88.8 Allergy status to other drugs, medicaments and biological substances
CPT/HCPCS: 99283

== ENCOUNTER 2018-07-13 23:36 | Inpatient (IN) | payer MEDICARE, MEDICAID ==
[~2018-07-13] VITALS: Ht 165.1 cm; Wt 80.7 kg
[2018-07-14 02:12] LABS: BASOPHILS % 0.9 % (0.0-2.0); EOSINOPHILS % 4.1 % (0.0-5.0); HEMATOCRIT. 37.1 % (42.0-52.0); LYMPHOCYTES % 29.8 % (20.0-50.0); MEAN CORPUSCULAR HEMOGLOBIN 25.4 pg (28.0-32.0); MEAN CORPUSCULAR VOLUME 78.3 fL (80.0-94.0); MEAN PLATELET VOLUME 7.8 fl (7.4-10.4); NEUTROPHILS % 57.2 % (40.0-76.0); PLATELET 199 x1000/uL (130-400); RED BLOOD CELL COUNT 4.73 mill/uL (4.7-6.1); RED CELL DISTRIBUTION WIDTH 14.8 % (11.6-14.6)
[2018-07-14 02:19] LABS: CLARITY URINE CLEAR (CLEAR); COLOR URINE YELLOW (YELLOW); KETONES URINE NEGATIVE (NEGATIVE); LEUKOCYTE ESTERASE URINE TRACE (NEGATIVE); NITRITE URINE NEGATIVE (NEGATIVE); OCCULT BLOOD URINE NEGATIVE (NEGATIVE); PROTEIN URINE NEGATIVE (NEGATIVE); SPECIFIC GRAVITY URINE 1.014 (1.005-1.030); UROBILINOGEN URINE 0.2 E.U./dL (0.2-1.0)
[2018-07-14 02:19] LABS: PROTHROMBIN TIME 10.3 sec (9.1-11.1)
[2018-07-14 02:22] LABS: CHLORIDE 102 mEq/L (98-107)
[2018-07-14] MEDS ORDERED: SODIUM CHLORIDE 0.9% 1,000 ML IV ONE (02:49)
[2018-07-14] MEDS ORDERED: CARVEDILOL 3.125 MG TABLET PO SCH (06:30)
[2018-07-14] MEDS ORDERED: INSULIN LISPRO 100 UNITS/ML SUBCUT SCH (07:50)
[2018-07-14] MEDS: BLOOD SUGAR DIAGNOSTIC STRIP TEST SCH ×4 (09:00→21:21)
[2018-07-14 10:00] VITALS: BP 208/79
[2018-07-14] MEDS: AMLODIPINE 10MG TABLET PO SCH (10:47)
[2018-07-14] MEDS: CLOPIDOGREL 75MG TABLET PO SCH (10:47)
[2018-07-14] MEDS: ASPIRIN 325MG EC TABLET PO SCH (10:48)
[2018-07-14] MEDS: GLIMEPIRIDE 1MG TABLET PO SCH ×2 (10:48→18:01)
[2018-07-14] MEDS: LOSARTAN POTASSIUM 100 MG TABLET PO SCH (10:48)
[2018-07-14 11:36] VITALS: BP 208/79
[2018-07-14 12:21] VITALS: BP 132/69
[2018-07-14] MEDS: HYDRALAZINE HCL 50MG TABLET PO SCH ×2 (12:28→21:21)
[2018-07-14] MEDS: INSULIN LISPRO (LOW DOSE) 100 UNITS/ML SUBCUT SCH ×3 (12:31→21:24)
[2018-07-14 16:28] VITALS: BP 117/61
[2018-07-14 20:00] VITALS: BP_SYST 112; BP_SYST 119; BP_SYST 127; BP_DIAS 53; BP_DIAS 54; BP_DIAS 70
[2018-07-15] VITALS (7 sets, daily range): BP systolic 113–180; BP diastolic 54–73
[2018-07-15] MEDS ORDERED: HYDRALAZINE 20MG/ML VIAL IV PRN (05:45)
[2018-07-15] MEDS: HYDRALAZINE HCL 50MG TABLET PO SCH ×3 (05:52→21:01)
[2018-07-15] MEDS: BLOOD SUGAR DIAGNOSTIC STRIP TEST SCH ×4 (06:29→21:01)
[2018-07-15] MEDS: INSULIN LISPRO (LOW DOSE) 100 UNITS/ML SUBCUT SCH ×4 (07:07→21:01)
[2018-07-15 08:05] LABS: HEMATOCRIT. 40.2 % (42.0-52.0); HEMOGLOBIN. 13.2 g/dL (14.0-18.0); MEAN CORPUSCULAR HEMOGLOBIN 25.6 pg (28.0-32.0); MEAN CORPUSCULAR VOLUME 77.9 fL (80.0-94.0); PLATELET 243 x1000/uL (130-400); RED BLOOD CELL COUNT 5.15 mill/uL (4.7-6.1); RED CELL DISTRIBUTION WIDTH 14.8 % (11.6-14.6)
[2018-07-15 08:15] LABS: CHLORIDE 101 mEq/L (98-107)
[2018-07-15 08:28] LABS: HDL CHOLESTEROL 61 mg/dL (40-59); PHOSPHORUS 3.6 mg/dL (2.5-4.9); TOTAL IRON BINDING CAPACITY 296 ug/dL (250-450)
[2018-07-15 08:29] LABS: LDL CHOLESTEROL 112 mg/dL (5-100)
[2018-07-15] MEDS: ASPIRIN 325MG EC TABLET PO SCH (08:58)
[2018-07-15] MEDS: CLOPIDOGREL 75MG TABLET PO SCH (08:59)
[2018-07-15] MEDS: AMLODIPINE 10MG TABLET PO SCH (08:59)
[2018-07-15] MEDS: LOSARTAN POTASSIUM 100 MG TABLET PO SCH (08:59)
[2018-07-15] MEDS: GLIMEPIRIDE 1MG TABLET PO SCH ×2 (08:59→18:22)
[2018-07-15 09:52] LABS: VITAMIN B12 SERUM 463 pg/mL (211-911)
[2018-07-15] MEDS: IPRATROPIUM/ALBUTEROL 0.5-3(2.5)MG/3ML NEB HHN SCH ×2 (12:28→16:12)
[2018-07-15 12:39] LABS: PLATELET ESTIMATE NORMAL
[2018-07-15] MEDS: ENOXAPARIN 40MG/0.4ML SYR SUBCUT SCH (13:20)
[2018-07-15] MEDS ORDERED: ATORVASTATIN CALCIUM 10MG TABLET PO SCH (21:00)
[2018-07-16] VITALS: BP 131/60
[2018-07-16 04:00] VITALS: BP_SYST 100; BP_SYST 145; BP_SYST 147; BP_DIAS 57; BP_DIAS 58; BP_DIAS 67
[2018-07-16] MEDS: HYDRALAZINE HCL 50MG TABLET PO SCH ×2 (05:20→12:32)
[2018-07-16] MEDS: BLOOD SUGAR DIAGNOSTIC STRIP TEST SCH ×3 (06:53→17:12)
[2018-07-16 07:01] LABS: BASOPHILS % 0.7 % (0.0-2.0); EOSINOPHILS % 4.2 % (0.0-5.0); HEMATOCRIT. 39.1 % (42.0-52.0); HEMOGLOBIN. 12.7 g/dL (14.0-18.0); LYMPHOCYTES % 40.1 % (20.0-50.0); MEAN CORPUSCULAR HEMOGLOBIN 25.4 pg (28.0-32.0); MEAN CORPUSCULAR VOLUME 78.3 fL (80.0-94.0); MEAN PLATELET VOLUME 8.4 fl (7.4-10.4); PLATELET 240 x1000/uL (130-400); RED BLOOD CELL COUNT 4.99 mill/uL (4.7-6.1); RED CELL DISTRIBUTION WIDTH 14.9 % (11.6-14.6)
[2018-07-16 07:25] LABS: CHLORIDE 102 mEq/L (98-107)
[2018-07-16] MEDS: INSULIN LISPRO (LOW DOSE) 100 UNITS/ML SUBCUT SCH ×3 (07:50→17:29)
[2018-07-16 08:00] VITALS: BP_SYST 140; BP_SYST 143; BP_SYST 156; BP_DIAS 52; BP_DIAS 58; BP_DIAS 59
[2018-07-16] MEDS: GLIMEPIRIDE 1MG TABLET PO SCH ×2 (08:48→17:24)
[2018-07-16] MEDS: ASPIRIN 81MG EC TABLET PO SCH ×2 (08:48→17:24)
[2018-07-16] MEDS: ENOXAPARIN 40MG/0.4ML SYR SUBCUT SCH (08:48)
[2018-07-16] MEDS: CLOPIDOGREL 75MG TABLET PO SCH (08:48)
[2018-07-16] MEDS: AMLODIPINE 10MG TABLET PO SCH (08:49)
[2018-07-16] MEDS: LOSARTAN POTASSIUM 100 MG TABLET PO SCH (08:49)
[2018-07-16] MEDS: IPRATROPIUM/ALBUTEROL 0.5-3(2.5)MG/3ML NEB HHN SCH ×2 (09:08→17:37)
[2018-07-16] MEDS ORDERED: AMLODIPINE 5MG TABLET PO SCH (09:53)
[2018-07-16] MEDS ORDERED: LOSARTAN POTASSIUM 50 MG TABLET PO SCH (09:54)
[2018-07-16 12:24] VITALS: BP_SYST 129; BP_SYST 135; BP_SYST 170; BP_DIAS 61; BP_DIAS 65; BP_DIAS 69
[2018-07-16 16:00] VITALS: BP_SYST 101; BP_SYST 113; BP_SYST 119; BP_DIAS 49; BP_DIAS 56; BP_DIAS 62
[2018-07-20 04:15] LABS: RENIN ACTIVITY PLASMA 0.511 ng/mL/hr (0.167-5.380)
== END 2018-07-16 19:36 | disposition home or self-care (01) | DRG 74 ==
LOC: ER 23:45 → 6WST 07-14 05:15 → EDBEDREQ 07-14 05:18 → EDBEDREQTM 07-14 05:18 → ENRESERV 07-14 08:02
PROVIDERS: ADMIT Internal Medicine Endocrinology, Diabetes & Metabolism; ATTEND Internal Medicine Endocrinology, Diabetes & Metabolism
DX: G90.8 Other disorders of autonomic nervous system (principal); I16.1 Hypertensive emergency; R00.1 Bradycardia, unspecified; E11.9 Type 2 diabetes mellitus without complications; E78.00 Pure hypercholesterolemia, unspecified; E78.5 Hyperlipidemia, unspecified; H40.10X0 Unspecified open-angle glaucoma, stage unspecified; I25.10 Atherosclerotic heart disease of native coronary artery without angina pectoris; J44.9 Chronic obstructive pulmonary disease, unspecified; H54.7 Unspecified visual loss; I11.9 Hypertensive heart disease without heart failure; Z82.0 Family history of epilepsy and other diseases of the nervous system; Z83.3 Family history of diabetes mellitus; Z86.73 Personal history of transient ischemic attack (TIA), and cerebral infarction without residual deficits; Z87.891 Personal history of nicotine dependence; Z95.5 Presence of coronary angioplasty implant and graft; Z88.8 Allergy status to other drugs, medicaments and biological substances; Z79.899 Other long term (current) drug therapy; Z79.82 Long term (current) use of aspirin; Z79.02 Long term (current) use of antithrombotics/antiplatelets
CPT/HCPCS: 36415; 70544; 70551; 71045; 80048; 80061; 82043; 82088; 82533; 82570; 82607; 82962; 83036; 83540; 83550; 83735; 83835; 84100; 84244; 84443; 84484; 85007; 85027; 85379; 86141; 93005; 93306; 93880; 94640; 96360; 96361; 97162; 97165; 99285; J1650; J1815; J7030; J7620

== ENCOUNTER 2018-09-28 20:53 | Inpatient (IN) | payer MEDICARE, MEDICAID ==
[~2018-09-28] VITALS: Ht 165.1 cm; Wt 77.1 kg
[~2018-09-28 20:53] MED LIST changes: -AMLO10TA4 MT; -LOSA100T14 PO
[2018-09-29 04:03] LABS: CHLORIDE 106 mEq/L (98-107)
[2018-09-29 04:05] LABS: BASOPHILS % 0.7 % (0.0-2.0); EOSINOPHILS % 3.4 % (0.0-5.0); HEMATOCRIT. 40.2 % (42.0-52.0); HEMOGLOBIN. 12.7 g/dL (14.0-18.0); LYMPHOCYTES % 18.5 % (20.0-50.0); MEAN CORPUSCULAR HEMOGLOBIN 25.4 pg (28.0-32.0); MEAN CORPUSCULAR VOLUME 80.3 fL (80.0-94.0); MONOCYTES % 8.2 % (2.0-8.0); NEUTROPHILS % 69.2 % (40.0-76.0); PLATELET 201 x1000/uL (130-400); RED BLOOD CELL COUNT 5.01 mill/uL (4.7-6.1); RED CELL DISTRIBUTION WIDTH 15.4 % (11.6-14.6)
[2018-09-29 04:11] LABS: D-DIMER 0.4 mg/L FEU (<0.50); PROTHROMBIN TIME 10.4 sec (9.1-11.1)
[2018-09-29] MEDS ORDERED: ASPIRIN 81MG TABLET PO ONE (05:30)
[2018-09-29] MEDS ORDERED: ACETAMINOPHEN 325MG TABLET PO PRN ×2 (05:45→06:45)
[2018-09-29] MEDS ORDERED: SODIUM CHLORIDE 0.9% 1,000 ML IV ONE (06:02)
[2018-09-29 06:17] LABS: CLARITY URINE CLEAR (CLEAR); COLOR URINE YELLOW (YELLOW); KETONES URINE NEGATIVE (NEGATIVE); LEUKOCYTE ESTERASE URINE NEGATIVE (NEGATIVE); NITRITE URINE NEGATIVE (NEGATIVE); OCCULT BLOOD URINE NEGATIVE (NEGATIVE); PH URINE 5.5 (4.5-8.0); PROTEIN URINE NEGATIVE (NEGATIVE); SPECIFIC GRAVITY URINE 1.018 (1.005-1.030); UROBILINOGEN URINE 0.2 E.U./dL (0.2-1.0)
[2018-09-29] MEDS ORDERED: NITROGLYCERIN 0.4MG TABLET SL SL PRN (06:45)
[2018-09-29] MEDS ORDERED: DULA0.75 SQ (14:34)
[2018-09-29] MEDS ORDERED: LOSA50TA20 MT (14:34)
[2018-09-29 14:52] VITALS: BP 114/48
[2018-09-29 14:59] LABS: BG BASE EXCESS 0.3 mmol/L (-2.0-2.0); BG CARBOXYHEMOGLOBIN 0.7 % (0.5-1.5); BG DEOXYHEMOGLOBIN 7.1 % (0.0-5.0); BG FRACTION INSPIRED OXYGEN 21; BG HCO3 ACT 26.2 mmol/L (22.0-26.0); BG METHEMOGLOBIN 0.2 % (0.0-1.5); BG OXYGEN SATURATION 92.8 % (92.0-98.5); BG PCO2 47.4 mmHg (35.0-45.0); BG PO2 71.4 mmHg (75.0-100.0); BG SAMPLE SITE RIGHT BRACHIAL; BG TOTAL HEMOGLOBIN 11.9 g/dL (12.0-18.0); BG VENT MODE ROOM AIR
[2018-09-29] MEDS ORDERED: SODIUM CHLORIDE 10% FOR INH 15ML VIAL NEB INH NR (15:00)
[2018-09-29 16:00] VITALS: BP 114/48
[2018-09-29] MEDS ORDERED: INSULIN LISPRO 100 UNITS/ML SUBCUT SCH (17:40)
[2018-09-29] MEDS: CLOPIDOGREL 75MG TABLET PO SCH (17:47)
[2018-09-29] MEDS: GLIMEPIRIDE 1MG TABLET PO SCH (17:47)
[2018-09-29] MEDS: NIFEDIPINE XL 30MG TAB PO SCH (17:48)
[2018-09-29] MEDS: BLOOD SUGAR DIAGNOSTIC STRIP TEST SCH ×2 (17:49→21:18)
[2018-09-29] MEDS: CARVEDILOL 3.125 MG TABLET PO SCH (17:49)
[2018-09-29 20:00] VITALS: BP 119/63
[2018-09-29] MEDS: INSULIN LISPRO (LOW DOSE) 100 UNITS/ML SUBCUT SCH (21:00)
[2018-09-29] MEDS: ATORVASTATIN CALCIUM 10MG TABLET PO SCH (21:14)
[2018-09-30] VITALS: BP 144/75
[2018-09-30 04:00] VITALS: BP 130/69
[2018-09-30] MEDS: BLOOD SUGAR DIAGNOSTIC STRIP TEST SCH ×4 (05:57→20:01)
[2018-09-30 07:18] LABS: EOSINOPHILS % 6.6 % (0.0-5.0); HEMATOCRIT. 35.1 % (42.0-52.0); HEMOGLOBIN. 11.3 g/dL (14.0-18.0); LYMPHOCYTES % 27.8 % (20.0-50.0); MEAN CORPUSCULAR HEMOGLOBIN 25.7 pg (28.0-32.0); MEAN CORPUSCULAR VOLUME 79.5 fL (80.0-94.0); MEAN PLATELET VOLUME 8.3 fl (7.4-10.4); MONOCYTES % 10.5 % (2.0-8.0); NEUTROPHILS % 54.1 % (40.0-76.0); PLATELET 183 x1000/uL (130-400); RED BLOOD CELL COUNT 4.42 mill/uL (4.7-6.1); RED CELL DISTRIBUTION WIDTH 14.7 % (11.6-14.6)
[2018-09-30] MEDS: GLIMEPIRIDE 1MG TABLET PO SCH ×2 (07:55→17:31)
[2018-09-30 08:00] VITALS: BP 107/82
[2018-09-30 08:03] LABS: CHLORIDE 107 mEq/L (98-107)
[2018-09-30 08:15] LABS: LDL CHOLESTEROL 62 mg/dL (5-100); PHOSPHORUS 3.4 mg/dL (2.5-4.9)
[2018-09-30 08:18] LABS: CREATINE KINASE 348 IU/L (39-308); HDL CHOLESTEROL 60 mg/dL (40-59)
[2018-09-30] MEDS: INSULIN LISPRO (LOW DOSE) 100 UNITS/ML SUBCUT SCH ×4 (08:42→20:07)
[2018-09-30] MEDS: ASPIRIN 81MG TABLET PO SCH ×2 (09:13→17:31)
[2018-09-30] MEDS: CLOPIDOGREL 75MG TABLET PO SCH (09:13)
[2018-09-30] MEDS: CARVEDILOL 3.125 MG TABLET PO SCH ×2 (09:14→17:31)
[2018-09-30] MEDS: NIFEDIPINE XL 30MG TAB PO SCH (09:14)
[2018-09-30 11:34] LABS: PLATELET ESTIMATE NORMAL
[2018-09-30 12:00] VITALS: BP 161/63
[2018-09-30] MEDS: IPRATROPIUM/ALBUTEROL 0.5-3(2.5)MG/3ML NEB HHN SCH ×2 (13:09→21:08)
[2018-09-30] MEDS ORDERED: CLONIDINE 0.2MG TABLET PO PRN (15:15)
[2018-09-30] MEDS ORDERED: CLONIDINE 0.1MG TABLET PO PRN (15:15)
[2018-09-30 16:00] VITALS: BP 136/55
[2018-09-30 20:00] VITALS: BP 141/64
[2018-09-30] MEDS: ATORVASTATIN CALCIUM 10MG TABLET PO SCH (20:01)
[2018-10-01] VITALS: BP 135/69
[2018-10-01 04:00] VITALS: BP 172/63
[2018-10-01] MEDS: BLOOD SUGAR DIAGNOSTIC STRIP TEST SCH ×2 (05:47→12:40)
[2018-10-01 06:00] LABS: BASOPHILS % 0.9 % (0.0-2.0); EOSINOPHILS % 6.2 % (0.0-5.0); HEMATOCRIT. 37.2 % (42.0-52.0); HEMOGLOBIN. 12.3 g/dL (14.0-18.0); LYMPHOCYTES % 31.7 % (20.0-50.0); MEAN CORPUSCULAR HEMOGLOBIN 26.1 pg (28.0-32.0); MEAN CORPUSCULAR VOLUME 79.2 fL (80.0-94.0); MEAN PLATELET VOLUME 8.4 fl (7.4-10.4); MONOCYTES % 8.7 % (2.0-8.0); NEUTROPHILS % 52.5 % (40.0-76.0); PLATELET 229 x1000/uL (130-400); RED CELL DISTRIBUTION WIDTH 14.7 % (11.6-14.6)
[2018-10-01 06:01] LABS: CHLORIDE 106 mEq/L (98-107)
[2018-10-01 06:10] LABS: TOTAL IRON BINDING CAPACITY 259 ug/dL (250-450)
[2018-10-01 07:00] VITALS: BP 146/82
[2018-10-01 07:29] LABS: VITAMIN B12 SERUM 420 pg/mL (211-911)
[2018-10-01] MEDS: GLIMEPIRIDE 1MG TABLET PO SCH (07:58)
[2018-10-01 08:01] VITALS: BP 130/61
[2018-10-01] MEDS: INSULIN LISPRO (LOW DOSE) 100 UNITS/ML SUBCUT SCH ×2 (08:01→12:44)
[2018-10-01] MEDS: IPRATROPIUM/ALBUTEROL 0.5-3(2.5)MG/3ML NEB HHN SCH ×3 (08:27→14:57)
[2018-10-01] MEDS: CARVEDILOL 3.125 MG TABLET PO SCH (09:00)
[2018-10-01] MEDS: NIFEDIPINE XL 30MG TAB PO SCH (09:08)
[2018-10-01] MEDS: ASPIRIN 81MG TABLET PO SCH (09:08)
[2018-10-01] MEDS: CLOPIDOGREL 75MG TABLET PO SCH (09:08)
[2018-10-01 10:07] LABS: A/G RATIO 1.2 (0.7-1.7); ALBUMIN 3.7 g/dL (2.9-4.4); ALPHA-1-GLOBULIN 0.3 g/dL (0.0-0.4); ALPHA-2-GLOBULIN 0.6 g/dL (0.4-1.0); BETA GLOBULIN 0.9 g/dL (0.7-1.3); GAMMA GLOBULINS 1.4 g/dL (0.4-1.8); GLOBULIN TOTAL 3.2 g/dL (2.2-3.9); M-SPIKE Not Observed g/dL (Not Observed); TOTAL PROTEIN SERUM 6.9 g/dL (6.0-8.5)
[2018-10-01 12:00] VITALS: BP 108/72
[2018-10-01 14:57] VITALS: BP 108/72
== END 2018-10-01 16:20 | disposition home or self-care (01) | DRG 191 ==
LOC: ER 20:53 → EDBEDREQ 09-29 05:43 → EDBEDREQTM 09-29 05:43 → ENRESERV 09-29 12:20 → CANRESERV 09-29 12:20 → ENRESERV 09-29 13:16 → 7WST 09-29 13:50
PROVIDERS: ADMIT Internal Medicine Endocrinology, Diabetes & Metabolism; ATTEND Internal Medicine Endocrinology, Diabetes & Metabolism
DX: J44.9 Chronic obstructive pulmonary disease, unspecified (principal); N17.9 Acute kidney failure, unspecified; I25.10 Atherosclerotic heart disease of native coronary artery without angina pectoris; Z95.5 Presence of coronary angioplasty implant and graft; I10 Essential (primary) hypertension; E78.00 Pure hypercholesterolemia, unspecified; E78.5 Hyperlipidemia, unspecified; D64.9 Anemia, unspecified; H40.10X0 Unspecified open-angle glaucoma, stage unspecified; E11.649 Type 2 diabetes mellitus with hypoglycemia without coma; Z79.02 Long term (current) use of antithrombotics/antiplatelets; Z79.4 Long term (current) use of insulin; Z82.0 Family history of epilepsy and other diseases of the nervous system; Z82.49 Family history of ischemic heart disease and other diseases of the circulatory system; Z83.3 Family history of diabetes mellitus; Z88.8 Allergy status to other drugs, medicaments and biological substances; Z87.891 Personal history of nicotine dependence; Z86.73 Personal history of transient ischemic attack (TIA), and cerebral infarction without residual deficits
CPT/HCPCS: 36415; 36600; 71045; 80048; 80061; 82270; 82375; 82550; 82607; 82805; 82962; 83036; 83540; 83550; 83735; 83880; 84100; 84155; 84165; 84443; 84484; 85007; 85027; 85379; 93005; 93306; 93970; 94640; 96360; 99285; J1815; J7030; J7131; J7620

== ENCOUNTER 2019-02-01 07:42 | Emergency (ER) | payer MEDICARE, MEDICAID ==
[~2019-02-01] VITALS: Ht 172.7 cm; Wt 84.0 kg
[~2019-02-01 07:42] MED LIST changes: -CLOP75TA16 PO; -COR3 PO; +DULA0.75 SQ; +LOSA50TA20 MT; -NIFE30TA94 PO
[2019-02-01 10:40] LABS: CLARITY URINE CLEAR (CLEAR); COLOR URINE YELLOW (YELLOW); KETONES URINE 1+ (NEGATIVE); LEUKOCYTE ESTERASE URINE NEGATIVE (NEGATIVE); NITRITE URINE NEGATIVE (NEGATIVE); OCCULT BLOOD URINE NEGATIVE (NEGATIVE); PROTEIN URINE NEGATIVE (NEGATIVE); SPECIFIC GRAVITY URINE 1.015 (1.005-1.030); UROBILINOGEN URINE 0.2 E.U./dL (0.2-1.0)
[2019-02-01 11:17] LABS: BASOPHILS % 0.7 % (0.0-2.0); EOSINOPHILS % 1.5 % (0.0-5.0); HEMATOCRIT. 36.7 % (42.0-52.0); LYMPHOCYTES % 10.9 % (20.0-50.0); MEAN CORPUSCULAR HEMOGLOBIN 25.9 pg (28.0-32.0); MEAN CORPUSCULAR VOLUME 79.6 fL (80.0-94.0); MEAN PLATELET VOLUME 7.9 fl (7.4-10.4); MONOCYTES % 9.5 % (2.0-8.0); NEUTROPHILS % 77.4 % (40.0-76.0); PLATELET 183 x1000/uL (130-400); RED BLOOD CELL COUNT 4.61 mill/uL (4.7-6.1); RED CELL DISTRIBUTION WIDTH 14.9 % (11.6-14.6)
[2019-02-01 11:24] LABS: CHLORIDE 102 mEq/L (98-107)
[2019-02-01 12:54] VITALS: BP 139/76
== END 2019-02-01 13:08 | disposition home or self-care (01) ==
LOC: ER 07:42
DX: R05 Cough (principal); R07.89 Other chest pain; R42 Dizziness and giddiness
CPT/HCPCS: 36415; 71045; 93005; 99284

== ENCOUNTER 2019-02-11 18:15 | Inpatient (IN) | payer MEDICARE, MEDICAID ==
[~2019-02-11] VITALS: Ht 170.2 cm; Wt 82.1 kg
[2019-02-11] MEDS ORDERED: CLONIDINE 0.2MG TABLET PO PRN (19:30)
[2019-02-11] MEDS ORDERED: CLONIDINE 0.1MG TABLET PO PRN (19:30)
[2019-02-11 20:00] VITALS: BP 143/53
[2019-02-11 20:35] VITALS: BP 143/53
[2019-02-11] MEDS: FAMOTIDINE 20MG TABLET PO SCH (21:15)
[2019-02-11] MEDS: ASPIRIN 81MG EC TABLET PO SCH (21:16)
[2019-02-11] MEDS: PIPERACILLIN/TAZ 3.375G PREMIX 50 ML IV SCH (21:16)
[2019-02-11] MEDS: HYDRALAZINE HCL 100MG TABLET PO SCH (21:16)
[2019-02-11] MEDS: AMLODIPINE 5MG TABLET PO SCH (21:16)
[2019-02-11] MEDS: BLOOD SUGAR DIAGNOSTIC STRIP TEST SCH (21:35)
[2019-02-11] MEDS: INSULIN LISPRO 100 UNITS/ML SUBCUT SCH (21:49)
[2019-02-12] MEDS ORDERED: DEXAMETHASONE 4MG/ML 1ML VIAL IV SCH
[2019-02-12] MEDS: PIPERACILLIN/TAZ 3.375G PREMIX 50 ML IV SCH ×4 (03:10→21:43)
[2019-02-12] MEDS: HYDRALAZINE HCL 100MG TABLET PO SCH ×3 (05:36→21:43)
[2019-02-12] MEDS: BLOOD SUGAR DIAGNOSTIC STRIP TEST SCH ×4 (06:32→20:41)
[2019-02-12] MEDS: INSULIN LISPRO 100 UNITS/ML SUBCUT SCH ×6 (06:33→16:42)
[2019-02-12 06:56] LABS: BASOPHILS % 0.3 % (0.0-2.0); EOSINOPHILS % 0.7 % (0.0-5.0); HEMOGLOBIN. 11.5 g/dL (14.0-18.0); LYMPHOCYTES % 12.1 % (20.0-50.0); MEAN CORPUSCULAR HEMOGLOBIN 25.4 pg (28.0-32.0); MEAN CORPUSCULAR VOLUME 79.6 fL (80.0-94.0); MONOCYTES % 8.2 % (2.0-8.0); NEUTROPHILS % 78.7 % (40.0-76.0); PLATELET 264 x1000/uL (130-400); RED BLOOD CELL COUNT 4.52 mill/uL (4.7-6.1); RED CELL DISTRIBUTION WIDTH 14.7 % (11.6-14.6)
[2019-02-12 07:47] LABS: CHLORIDE 104 mEq/L (98-107)
[2019-02-12] MEDS ORDERED: PNEUMOCOCCAL 23-VAL P-SAC VAC 0.5 ML IM ONE (08:00)
[2019-02-12 08:48] VITALS: BP 154/76
[2019-02-12] MEDS ORDERED: ASPIRIN 81MG EC TABLET PO SCH (09:00)
[2019-02-12] MEDS: ASPIRIN 81MG EC TABLET PO SCH ×2 (09:40→16:40)
[2019-02-12] MEDS: FAMOTIDINE 20MG TABLET PO SCH (09:40)
[2019-02-12] MEDS: AMLODIPINE 5MG TABLET PO SCH ×2 (09:40→20:37)
[2019-02-12] MEDS: LOSARTAN POTASSIUM 100 MG TABLET PO SCH (09:40)
[2019-02-12] MEDS: ENOXAPARIN 40MG/0.4ML SYR SUBCUT SCH (09:41)
[2019-02-12] MEDS ORDERED: INSULIN GLARGINE UD 100 UNITS/ML SYR SUBCUT SCH ×2 (10:00)
[2019-02-12 17:24] LABS: CLARITY URINE CLEAR (CLEAR); COLOR URINE YELLOW (YELLOW); KETONES URINE NEGATIVE (NEGATIVE); LEUKOCYTE ESTERASE URINE NEGATIVE (NEGATIVE); NITRITE URINE NEGATIVE (NEGATIVE); OCCULT BLOOD URINE NEGATIVE (NEGATIVE); PROTEIN URINE NEGATIVE (NEGATIVE); SPECIFIC GRAVITY URINE 1.019 (1.005-1.030); UROBILINOGEN URINE 0.2 E.U./dL (0.2-1.0)
[2019-02-12] MEDS: IPRATROPIUM/ALBUTEROL 0.5-3(2.5)MG/3ML NEB HHN PRN (19:23)
[2019-02-12 20:00] VITALS: BP 131/61
[2019-02-12] MEDS: DEXTROSE 50% WATER 50ML SYRINGE IV PRN (20:44)
[2019-02-13] MEDS: PIPERACILLIN/TAZ 3.375G PREMIX 50 ML IV SCH ×4 (03:20→21:42)
[2019-02-13] MEDS: HYDRALAZINE HCL 100MG TABLET PO SCH ×3 (05:26→23:00)
[2019-02-13] MEDS: BLOOD SUGAR DIAGNOSTIC STRIP TEST SCH ×4 (06:07→21:42)
[2019-02-13] MEDS: INSULIN LISPRO 100 UNITS/ML SUBCUT SCH ×6 (06:08→16:33)
[2019-02-13] MEDS: DEXTROSE 50% WATER 50ML SYRINGE IV PRN (06:08)
[2019-02-13 06:39] LABS: BASOPHILS % 0.6 % (0.0-2.0); HEMATOCRIT. 35.5 % (42.0-52.0); HEMOGLOBIN. 11.6 g/dL (14.0-18.0); LYMPHOCYTES % 16.2 % (20.0-50.0); MEAN CORPUSCULAR HEMOGLOBIN 25.9 pg (28.0-32.0); MEAN PLATELET VOLUME 8.1 fl (7.4-10.4); NEUTROPHILS % 73.2 % (40.0-76.0); PLATELET 300 x1000/uL (130-400); RED BLOOD CELL COUNT 4.49 mill/uL (4.7-6.1); RED CELL DISTRIBUTION WIDTH 14.4 % (11.6-14.6)
[2019-02-13 06:50] LABS: CHLORIDE 102 mEq/L (98-107)
[2019-02-13 07:19] LABS: PHOSPHORUS 3.9 mg/dL (2.5-4.9); TOTAL IRON BINDING CAPACITY 188 ug/dL (250-450)
[2019-02-13 07:37] LABS: FOLIC ACID (FOLATE) SERUM 17.6 ng/mL (>5.38)
[2019-02-13 08:00] VITALS: BP 133/73
[2019-02-13] MEDS: ENOXAPARIN 40MG/0.4ML SYR SUBCUT SCH (08:50)
[2019-02-13] MEDS: AMLODIPINE 5MG TABLET PO SCH ×2 (08:50→21:42)
[2019-02-13] MEDS: ASPIRIN 81MG EC TABLET PO SCH ×2 (08:50→16:33)
[2019-02-13] MEDS: FAMOTIDINE 20MG TABLET PO SCH (08:50)
[2019-02-13] MEDS: LOSARTAN POTASSIUM 100 MG TABLET PO SCH (08:50)
[2019-02-13] MEDS: INSULIN GLARGINE UD 100 UNITS/ML SYR SUBCUT SCH (10:55)
[2019-02-13] MEDS: IPRATROPIUM/ALBUTEROL 0.5-3(2.5)MG/3ML NEB HHN PRN ×3 (12:59→21:10)
[2019-02-13 20:40] VITALS: BP 116/64
[2019-02-14] MEDS: PIPERACILLIN/TAZ 3.375G PREMIX 50 ML IV SCH ×4 (02:36→21:22)
[2019-02-14] MEDS: BLOOD SUGAR DIAGNOSTIC STRIP TEST SCH ×4 (06:21→20:02)
[2019-02-14] MEDS: HYDRALAZINE HCL 100MG TABLET PO SCH ×3 (06:21→21:30)
[2019-02-14] MEDS: INSULIN LISPRO 100 UNITS/ML SUBCUT SCH ×6 (07:00→17:46)
[2019-02-14] MEDS: IPRATROPIUM/ALBUTEROL 0.5-3(2.5)MG/3ML NEB HHN PRN (07:54)
[2019-02-14 08:00] VITALS: BP 99/59
[2019-02-14] MEDS ORDERED: RACEPINEPHRINE 2.25% 0.5ML NEB VIAL HHN NR (08:45)
[2019-02-14] MEDS ORDERED: RACEPINEPHRINE 2.25% 0.5ML NEB VIAL ONE (08:49)
[2019-02-14] MEDS ORDERED: DEXAMETHASONE 4MG/ML 1ML VIAL IV NR (08:52)
[2019-02-14] MEDS: LOSARTAN POTASSIUM 100 MG TABLET PO SCH (10:34)
[2019-02-14] MEDS: FAMOTIDINE 20MG TABLET PO SCH (10:34)
[2019-02-14] MEDS: AMLODIPINE 5MG TABLET PO SCH ×2 (10:34→20:02)
[2019-02-14] MEDS: ASPIRIN 81MG EC TABLET PO SCH ×2 (10:34→17:05)
[2019-02-14] MEDS: ENOXAPARIN 40MG/0.4ML SYR SUBCUT SCH (10:35)
[2019-02-14] MEDS: INSULIN GLARGINE UD 100 UNITS/ML SYR SUBCUT SCH (11:03)
[2019-02-14] MEDS ORDERED: RACEPINEPHRINE 2.25% 0.5ML NEB VIAL HHN STA (11:04)
[2019-02-14 11:35] VITALS: BP 126/70
[2019-02-14] MEDS: GUAIFENESIN-DM 200MG-20MG/10ML UDC PO SCH ×4 (11:48→23:40)
[2019-02-14] MEDS: DEXAMETHASONE 4MG/ML 1ML VIAL IV SCH ×3 (11:48→23:40)
[2019-02-14] MEDS ORDERED: RACEPINEPHRINE 2.25% 0.5ML NEB VIAL HHN SCH (12:00)
[2019-02-14 12:46] VITALS: BP 137/62
[2019-02-14] MEDS: RACEPINEPHRINE 2.25% 0.5ML NEB VIAL HHN SCH (15:00)
[2019-02-14] MEDS: RACEPINEPHRINE 2.25% 0.5ML NEB VIAL HHN PRN ×2 (19:17→22:00)
[2019-02-14 20:00] VITALS: BP 125/65
[2019-02-14 21:30] VITALS: BP 126/64
[2019-02-14 23:45] VITALS: BP 149/57
[2019-02-15 01:00] VITALS: BP 128/68
[2019-02-15] MEDS: IPRATROPIUM/ALBUTEROL 0.5-3(2.5)MG/3ML NEB HHN PRN ×3 (01:04→05:03)
[2019-02-15] MEDS: GUAIFENESIN-DM 200MG-20MG/10ML UDC PO SCH ×2 (03:23→08:00)
[2019-02-15] MEDS: PIPERACILLIN/TAZ 3.375G PREMIX 50 ML IV SCH ×4 (03:24→21:39)
[2019-02-15 03:30] VITALS: BP 140/69
[2019-02-15] MEDS: DEXAMETHASONE 4MG/ML 1ML VIAL IV SCH ×3 (05:21→17:25)
[2019-02-15] MEDS: HYDRALAZINE HCL 100MG TABLET PO SCH ×3 (05:27→21:43)
[2019-02-15] MEDS: BLOOD SUGAR DIAGNOSTIC STRIP TEST SCH ×4 (05:27→20:47)
[2019-02-15 06:00] VITALS: BP 124/64
[2019-02-15] MEDS: INSULIN LISPRO 100 UNITS/ML SUBCUT SCH ×6 (06:10→17:33)
[2019-02-15 07:02] LABS: HEMATOCRIT. 32.9 % (42.0-52.0); MEAN CORPUSCULAR HEMOGLOBIN 26.2 pg (28.0-32.0); MEAN CORPUSCULAR VOLUME 78.6 fL (80.0-94.0); MEAN PLATELET VOLUME 8.4 fl (7.4-10.4); PLATELET 310 x1000/uL (130-400); RED BLOOD CELL COUNT 4.19 mill/uL (4.7-6.1); RED CELL DISTRIBUTION WIDTH 14.7 % (11.6-14.6)
[2019-02-15 07:15] LABS: CHLORIDE 101 mEq/L (98-107)
[2019-02-15 07:37] LABS: PHOSPHORUS 3.5 mg/dL (2.5-4.9)
[2019-02-15 08:14] VITALS: BP 122/62
[2019-02-15] MEDS: ENOXAPARIN 40MG/0.4ML SYR SUBCUT SCH (08:43)
[2019-02-15] MEDS: FAMOTIDINE 20MG TABLET PO SCH (08:46)
[2019-02-15] MEDS: LOSARTAN POTASSIUM 100 MG TABLET PO SCH (08:46)
[2019-02-15] MEDS: ASPIRIN 81MG EC TABLET PO SCH ×2 (08:46→17:25)
[2019-02-15] MEDS: AMLODIPINE 5MG TABLET PO SCH ×2 (08:46→20:47)
[2019-02-15] MEDS: INSULIN GLARGINE UD 100 UNITS/ML SYR SUBCUT SCH (09:12)
[2019-02-15] MEDS: RACEPINEPHRINE 2.25% 0.5ML NEB VIAL HHN SCH ×2 (10:00→13:26)
[2019-02-15 12:51] LABS: PLATELET ESTIMATE NORMAL
[2019-02-15 20:00] VITALS: BP 117/52
[2019-02-15] MEDS: GUAIFENESIN-DM 200MG-20MG/10ML UDC PO PRN (21:39)
[2019-02-15 21:44] VITALS: BP 145/59
[2019-02-16] MEDS: PIPERACILLIN/TAZ 3.375G PREMIX 50 ML IV SCH (04:13)
[2019-02-16] MEDS: RACEPINEPHRINE 2.25% 0.5ML NEB VIAL HHN SCH ×2 (04:14→07:14)
[2019-02-16] MEDS: HYDRALAZINE HCL 100MG TABLET PO SCH ×3 (06:04→22:09)
[2019-02-16] MEDS: INSULIN LISPRO 100 UNITS/ML SUBCUT SCH ×6 (06:04→17:17)
[2019-02-16] MEDS: DEXAMETHASONE 4MG/ML 1ML VIAL IV SCH ×4 (06:04→22:09)
[2019-02-16] MEDS: BLOOD SUGAR DIAGNOSTIC STRIP TEST SCH ×4 (06:04→21:00)
[2019-02-16 06:38] LABS: HEMATOCRIT. 31.9 % (42.0-52.0); HEMOGLOBIN. 10.4 g/dL (14.0-18.0); MEAN CORPUSCULAR HEMOGLOBIN 25.7 pg (28.0-32.0); MEAN CORPUSCULAR VOLUME 78.7 fL (80.0-94.0); MEAN PLATELET VOLUME 8.4 fl (7.4-10.4); PLATELET 331 x1000/uL (130-400); RED BLOOD CELL COUNT 4.05 mill/uL (4.7-6.1); RED CELL DISTRIBUTION WIDTH 14.8 % (11.6-14.6)
[2019-02-16] MEDS: SODIUM CHLORIDE 0.45% 1,000 ML IV SCH (06:48)
[2019-02-16 08:06] VITALS: BP 153/60
[2019-02-16] MEDS: ASPIRIN 81MG EC TABLET PO SCH ×2 (08:38→17:16)
[2019-02-16] MEDS: FAMOTIDINE 20MG TABLET PO SCH (08:38)
[2019-02-16] MEDS: AMLODIPINE 5MG TABLET PO SCH ×2 (08:38→22:09)
[2019-02-16] MEDS: ENOXAPARIN 40MG/0.4ML SYR SUBCUT SCH (08:39)
[2019-02-16] MEDS: INSULIN GLARGINE UD 100 UNITS/ML SYR SUBCUT SCH (10:17)
[2019-02-16 10:52] LABS: PLATELET ESTIMATE NORMAL
[2019-02-16] MEDS: PIPERACILLIN/TAZ 2.25G PREMIX 50 ML IV SCH ×2 (12:37→17:21)
[2019-02-16] MEDS: IPRATROPIUM/ALBUTEROL 0.5-3(2.5)MG/3ML NEB HHN PRN (13:48)
[2019-02-16] MEDS: IPRATROPIUM/ALBUTEROL 0.5-3(2.5)MG/3ML NEB HHN SCH (19:53)
[2019-02-16 20:00] VITALS: BP 132/62
[2019-02-17] MEDS: PIPERACILLIN/TAZ 2.25G PREMIX 50 ML IV SCH ×4 (00:25→17:35)
[2019-02-17] MEDS: IPRATROPIUM/ALBUTEROL 0.5-3(2.5)MG/3ML NEB HHN SCH ×4 (01:25→21:31)
[2019-02-17] MEDS: SODIUM CHLORIDE 0.45% 1,000 ML IV SCH ×2 (01:52→22:32)
[2019-02-17 04:12] LABS: 25-HYDROXY VITAMIN D3 22 ng/mL (.)
[2019-02-17] MEDS: DEXAMETHASONE 4MG/ML 1ML VIAL IV SCH ×2 (06:19→17:35)
[2019-02-17] MEDS: HYDRALAZINE HCL 100MG TABLET PO SCH ×3 (06:20→22:25)
[2019-02-17] MEDS: BLOOD SUGAR DIAGNOSTIC STRIP TEST SCH ×4 (06:20→21:00)
[2019-02-17] MEDS: INSULIN LISPRO 100 UNITS/ML SUBCUT SCH ×6 (06:21→17:36)
[2019-02-17 07:22] LABS: HEMATOCRIT. 32.5 % (42.0-52.0); HEMOGLOBIN. 10.5 g/dL (14.0-18.0); MEAN CORPUSCULAR HEMOGLOBIN 25.7 pg (28.0-32.0); MEAN CORPUSCULAR VOLUME 79.6 fL (80.0-94.0); MEAN PLATELET VOLUME 8.2 fl (7.4-10.4); PLATELET 349 x1000/uL (130-400); RED BLOOD CELL COUNT 4.08 mill/uL (4.7-6.1); RED CELL DISTRIBUTION WIDTH 14.9 % (11.6-14.6)
[2019-02-17] MEDS: AMLODIPINE 5MG TABLET PO SCH ×2 (08:13→22:25)
[2019-02-17] MEDS: ENOXAPARIN 40MG/0.4ML SYR SUBCUT SCH (08:13)
[2019-02-17] MEDS: FAMOTIDINE 20MG TABLET PO SCH (08:14)
[2019-02-17] MEDS: ASPIRIN 81MG EC TABLET PO SCH ×2 (08:14→17:35)
[2019-02-17 08:34] VITALS: BP 149/77
[2019-02-17] MEDS: INSULIN GLARGINE UD 100 UNITS/ML SYR SUBCUT SCH (10:14)
[2019-02-17] MEDS ORDERED: ERGOCALCIFEROL 50000UNITS CAPSULE PO SCH (12:00)
[2019-02-17 20:00] VITALS: BP 136/66
[2019-02-18] MEDS: PIPERACILLIN/TAZ 2.25G PREMIX 50 ML IV SCH ×4 (00:15→17:35)
[2019-02-18] MEDS: IPRATROPIUM/ALBUTEROL 0.5-3(2.5)MG/3ML NEB HHN SCH ×4 (01:16→20:03)
[2019-02-18] MEDS: HYDRALAZINE HCL 100MG TABLET PO SCH ×3 (05:33→21:36)
[2019-02-18] MEDS: DEXAMETHASONE 4MG/ML 1ML VIAL IV SCH ×2 (05:33→17:35)
[2019-02-18 06:27] LABS: BASOPHILS % 0.4 % (0.0-2.0); EOSINOPHILS % 0.5 % (0.0-5.0); HEMATOCRIT. 32.3 % (42.0-52.0); HEMOGLOBIN. 10.6 g/dL (14.0-18.0); LYMPHOCYTES % 11.2 % (20.0-50.0); MEAN CORPUSCULAR HEMOGLOBIN 25.9 pg (28.0-32.0); MEAN CORPUSCULAR VOLUME 79.1 fL (80.0-94.0); MONOCYTES % 7.6 % (2.0-8.0); NEUTROPHILS % 80.3 % (40.0-76.0); PLATELET 299 x1000/uL (130-400); RED BLOOD CELL COUNT 4.08 mill/uL (4.7-6.1); RED CELL DISTRIBUTION WIDTH 14.7 % (11.6-14.6)
[2019-02-18] MEDS: INSULIN LISPRO 100 UNITS/ML SUBCUT SCH ×6 (06:36→17:33)
[2019-02-18] MEDS: BLOOD SUGAR DIAGNOSTIC STRIP TEST SCH ×4 (06:37→21:34)
[2019-02-18 08:00] VITALS: BP 140/56
[2019-02-18] MEDS: ASPIRIN 81MG EC TABLET PO SCH ×2 (08:33→17:35)
[2019-02-18] MEDS: FAMOTIDINE 20MG TABLET PO SCH (08:33)
[2019-02-18] MEDS: AMLODIPINE 5MG TABLET PO SCH ×2 (08:33→21:35)
[2019-02-18] MEDS: ENOXAPARIN 40MG/0.4ML SYR SUBCUT SCH (08:34)
[2019-02-18] MEDS: INSULIN GLARGINE UD 100 UNITS/ML SYR SUBCUT SCH (10:58)
[2019-02-18 13:32] LABS: PLATELET ESTIMATE NORMAL
[2019-02-18 20:00] VITALS: BP 140/66
[2019-02-18] MEDS ORDERED: INSULIN GLARGINE UD 100 UNITS/ML SYR SUBCUT NR (21:00)
[2019-02-19] MEDS: PIPERACILLIN/TAZ 2.25G PREMIX 50 ML IV SCH ×2 (00:07→05:33)
[2019-02-19] MEDS: IPRATROPIUM/ALBUTEROL 0.5-3(2.5)MG/3ML NEB HHN SCH ×4 (00:26→21:32)
[2019-02-19] MEDS: DEXAMETHASONE 4MG/ML 1ML VIAL IV SCH ×2 (05:33→17:43)
[2019-02-19] MEDS: HYDRALAZINE HCL 100MG TABLET PO SCH ×3 (05:34→22:03)
[2019-02-19] MEDS: BLOOD SUGAR DIAGNOSTIC STRIP TEST SCH ×4 (06:49→21:00)
[2019-02-19] MEDS: INSULIN LISPRO 100 UNITS/ML SUBCUT SCH ×6 (06:50→17:00)
[2019-02-19 08:18] VITALS: BP 154/72
[2019-02-19] MEDS: ENOXAPARIN 40MG/0.4ML SYR SUBCUT SCH (08:52)
[2019-02-19] MEDS: AMLODIPINE 5MG TABLET PO SCH ×2 (08:52→21:00)
[2019-02-19] MEDS: FAMOTIDINE 20MG TABLET PO SCH (08:52)
[2019-02-19] MEDS: ASPIRIN 81MG EC TABLET PO SCH ×2 (08:52→16:48)
[2019-02-19] MEDS: INSULIN GLARGINE UD 100 UNITS/ML SYR SUBCUT SCH (10:00)
[2019-02-19 20:00] VITALS: BP 123/52
[2019-02-20] MEDS: IPRATROPIUM/ALBUTEROL 0.5-3(2.5)MG/3ML NEB HHN SCH ×4 (02:24→21:11)
[2019-02-20] MEDS: DEXAMETHASONE 4MG/ML 1ML VIAL IV SCH ×2 (05:35→17:34)
[2019-02-20] MEDS: HYDRALAZINE HCL 100MG TABLET PO SCH ×3 (05:41→21:08)
[2019-02-20] MEDS: BLOOD SUGAR DIAGNOSTIC STRIP TEST SCH ×4 (05:41→20:43)
[2019-02-20] MEDS: INSULIN LISPRO 100 UNITS/ML SUBCUT SCH ×6 (07:00→17:41)
[2019-02-20 07:26] LABS: BASOPHILS % 0.4 % (0.0-2.0); EOSINOPHILS % 3.2 % (0.0-5.0); HEMOGLOBIN. 9.6 g/dL (14.0-18.0); LYMPHOCYTES % 23.9 % (20.0-50.0); MEAN CORPUSCULAR HEMOGLOBIN 26.2 pg (28.0-32.0); MEAN CORPUSCULAR VOLUME 79.2 fL (80.0-94.0); MONOCYTES % 7.7 % (2.0-8.0); NEUTROPHILS % 64.8 % (40.0-76.0); PLATELET 289 x1000/uL (130-400); RED BLOOD CELL COUNT 3.66 mill/uL (4.7-6.1)
[2019-02-20] MEDS: FAMOTIDINE 20MG TABLET PO SCH (08:05)
[2019-02-20] MEDS: ENOXAPARIN 40MG/0.4ML SYR SUBCUT SCH (08:05)
[2019-02-20 08:06] VITALS: BP 171/73
[2019-02-20] MEDS: ASPIRIN 81MG EC TABLET PO SCH ×2 (08:06→17:34)
[2019-02-20] MEDS: AMLODIPINE 5MG TABLET PO SCH ×2 (08:06→20:43)
[2019-02-20 08:38] LABS: CHLORIDE 106 mEq/L (98-107)
[2019-02-20] MEDS: INSULIN GLARGINE UD 100 UNITS/ML SYR SUBCUT SCH (10:50)
[2019-02-20 20:00] VITALS: BP 115/64
[2019-02-20] MEDS: GUAIFENESIN-DM 200MG-20MG/10ML UDC PO PRN (20:43)
[2019-02-21] MEDS: IPRATROPIUM/ALBUTEROL 0.5-3(2.5)MG/3ML NEB HHN SCH ×4 (02:32→22:39)
[2019-02-21] MEDS: DEXAMETHASONE 4MG/ML 1ML VIAL IV SCH (05:46)
[2019-02-21] MEDS: HYDRALAZINE HCL 100MG TABLET PO SCH ×3 (05:47→22:28)
[2019-02-21] MEDS: BLOOD SUGAR DIAGNOSTIC STRIP TEST SCH ×4 (05:49→21:00)
[2019-02-21] MEDS: INSULIN LISPRO 100 UNITS/ML SUBCUT SCH ×6 (06:32→17:38)
[2019-02-21 08:00] VITALS: BP 135/65
[2019-02-21] MEDS: AMLODIPINE 5MG TABLET PO SCH ×2 (09:13→22:28)
[2019-02-21] MEDS: FAMOTIDINE 20MG TABLET PO SCH ×2 (09:13→22:28)
[2019-02-21] MEDS: METHYLPREDNISOLONE 4MG TABLET PO SCH (09:13)
[2019-02-21] MEDS: ENOXAPARIN 40MG/0.4ML SYR SUBCUT SCH (09:13)
[2019-02-21] MEDS: ASPIRIN 81MG EC TABLET PO SCH ×2 (09:13→16:42)
[2019-02-21] MEDS: INSULIN GLARGINE UD 100 UNITS/ML SYR SUBCUT SCH (10:34)
[2019-02-21 20:00] VITALS: BP 157/73
[2019-02-22 06:43] LABS: BASOPHILS % 0.6 % (0.0-2.0); EOSINOPHILS % 2.4 % (0.0-5.0); HEMATOCRIT. 30.2 % (42.0-52.0); LYMPHOCYTES % 22.5 % (20.0-50.0); MEAN CORPUSCULAR HEMOGLOBIN 26.1 pg (28.0-32.0); MEAN CORPUSCULAR VOLUME 79.3 fL (80.0-94.0); MEAN PLATELET VOLUME 7.9 fl (7.4-10.4); MONOCYTES % 7.4 % (2.0-8.0); NEUTROPHILS % 67.1 % (40.0-76.0); PLATELET 305 x1000/uL (130-400); RED BLOOD CELL COUNT 3.81 mill/uL (4.7-6.1); RED CELL DISTRIBUTION WIDTH 15.4 % (11.6-14.6)
[2019-02-22 06:52] LABS: CHLORIDE 108 mEq/L (98-107)
[2019-02-22] MEDS: BLOOD SUGAR DIAGNOSTIC STRIP TEST SCH ×2 (06:56→11:04)
[2019-02-22] MEDS: HYDRALAZINE HCL 100MG TABLET PO SCH ×2 (06:57→13:33)
[2019-02-22] MEDS: INSULIN LISPRO 100 UNITS/ML SUBCUT SCH ×4 (06:57→13:34)
[2019-02-22] MEDS ORDERED: POTASSIUM CHLORIDE 20MEQ TABLET SR PO SCH (07:45)
[2019-02-22 08:02] VITALS: BP 137/59
[2019-02-22 08:33] VITALS: BP 137/59
[2019-02-22] MEDS: AMLODIPINE 5MG TABLET PO SCH (09:11)
[2019-02-22] MEDS: ENOXAPARIN 40MG/0.4ML SYR SUBCUT SCH (09:11)
[2019-02-22] MEDS: FAMOTIDINE 20MG TABLET PO SCH (09:11)
[2019-02-22] MEDS: METHYLPREDNISOLONE 4MG TABLET PO SCH (09:11)
[2019-02-22] MEDS: ASPIRIN 81MG EC TABLET PO SCH (09:11)
[2019-02-22] MEDS ORDERED: INSULIN GLARGINE UD 100 UNITS/ML SYR SUBCUT SCH (10:00)
[2019-02-22] MEDS: IPRATROPIUM/ALBUTEROL 0.5-3(2.5)MG/3ML NEB HHN SCH ×2 (10:20→14:57)
[2019-02-22 10:24] VITALS: BP 137/59
[2019-02-22 10:35] LABS: CHLORIDE 106 mEq/L (98-107)
== END 2019-02-22 16:35 | disposition home health service (06) | DRG 91 ==
PROVIDERS: ADMIT Physical Medicine & Rehabilitation Spinal Cord Injury Medicine; ATTEND Internal Medicine Endocrinology, Diabetes & Metabolism
PROC: 5A09357 Assistance with Respiratory Ventilation, Less than 24 Consecutive Hours, Continuous Positive Airway Pressure (ICD-10-PCS; principal; 2019-02-13)
PROC: 5A09357 Assistance with Respiratory Ventilation, Less than 24 Consecutive Hours, Continuous Positive Airway Pressure (ICD-10-PCS; 2019-02-15)
DX: G92 Toxic encephalopathy (principal); J18.9 Pneumonia, unspecified organism; E43 Unspecified severe protein-calorie malnutrition; J96.00 Acute respiratory failure, unspecified whether with hypoxia or hypercapnia; N17.9 Acute kidney failure, unspecified; G93.1 Anoxic brain damage, not elsewhere classified; I69.351 Hemiplegia and hemiparesis following cerebral infarction affecting right dominant side; R13.10 Dysphagia, unspecified; E11.22 Type 2 diabetes mellitus with diabetic chronic kidney disease; I25.10 Atherosclerotic heart disease of native coronary artery without angina pectoris; I12.9 Hypertensive chronic kidney disease with stage 1 through stage 4 chronic kidney disease, or unspecified chronic kidney disease; E11.39 Type 2 diabetes mellitus with other diabetic ophthalmic complication; H42 Glaucoma in diseases classified elsewhere; E78.00 Pure hypercholesterolemia, unspecified; R94.5 Abnormal results of liver function studies; D64.9 Anemia, unspecified; E05.90 Thyrotoxicosis, unspecified without thyrotoxic crisis or storm; N18.9 Chronic kidney disease, unspecified; J43.9 Emphysema, unspecified; N28.1 Cyst of kidney, acquired; R74.0 Nonspecific elevation of levels of transaminase and lactic acid dehydrogenase [LDH]; E78.5 Hyperlipidemia, unspecified; H40.10X0 Unspecified open-angle glaucoma, stage unspecified; E55.9 Vitamin D deficiency, unspecified; E87.6 Hypokalemia; E11.65 Type 2 diabetes mellitus with hyperglycemia; T38.0X5A Adverse effect of glucocorticoids and synthetic analogues, initial encounter; Z87.891 Personal history of nicotine dependence; Z88.8 Allergy status to other drugs, medicaments and biological substances; Z95.5 Presence of coronary angioplasty implant and graft; Z79.899 Other long term (current) drug therapy; Z79.4 Long term (current) use of insulin; Z82.49 Family history of ischemic heart disease and other diseases of the circulatory system; Z68.28 Body mass index [BMI] 28.0-28.9, adult; Y92.89 Other specified places as the place of occurrence of the external cause
CPT/HCPCS: 36415; 71045; 80048; 82306; 82607; 82728; 82746; 82962; 83520; 83540; 83550; 83735; 84100; 84134; 84443; 85651; 90732; 92523; 92610; 93970; 94640; 94660; 97110; 97112; 97116; 97150; 97162; 97167; 97530; 97535; J1100; J1650; J1815; J2543; J7040; J7050; J7060; J7509; J7620

== ENCOUNTER 2019-09-07 15:19 | Emergency (ER) | payer MEDICARE, MEDICAID ==
[~2019-09-07] VITALS: Ht 172.7 cm; Wt 78.0 kg
[~2019-09-07 15:19] MED LIST changes: -ALBU18HF2 IH; -DULA0.75 SQ; -GLIM1TAB2 PO; -LOSA50TA20 MT
[2019-09-07] MEDS ORDERED: SODIUM CHLORIDE 0.9% 1,000 ML IV ONE (16:45)
[2019-09-07 17:52] LABS: CLARITY URINE CLEAR (CLEAR); COLOR URINE YELLOW (YELLOW); KETONES URINE NEGATIVE (NEGATIVE); LEUKOCYTE ESTERASE URINE NEGATIVE (NEGATIVE); NITRITE URINE NEGATIVE (NEGATIVE); OCCULT BLOOD URINE NEGATIVE (NEGATIVE); PROTEIN URINE NEGATIVE (NEGATIVE); SPECIFIC GRAVITY URINE 1.022 (1.005-1.030); UROBILINOGEN URINE 0.2 E.U./dL (0.2-1.0)
[2019-09-07 19:13] LABS: BASOPHILS % 0.9 % (0.0-2.0); EOSINOPHILS % 2.7 % (0.0-5.0); HEMOGLOBIN. 11.7 g/dL (14.0-18.0); LYMPHOCYTES % 21.6 % (20.0-50.0); MEAN CORPUSCULAR HEMOGLOBIN 25.4 pg (28.0-32.0); MEAN CORPUSCULAR VOLUME 78.2 fL (80.0-94.0); MEAN PLATELET VOLUME 7.8 fl (7.4-10.4); NEUTROPHILS % 68.8 % (40.0-76.0); PLATELET 208 x1000/uL (130-400); RED CELL DISTRIBUTION WIDTH 15.7 % (11.6-14.6)
[2019-09-07 19:20] LABS: PROTHROMBIN TIME 10.2 sec (9.6-11.0)
[2019-09-07 19:21] LABS: CHLORIDE 103 mEq/L (98-107)
[2019-09-07] MEDS ORDERED: INSULIN REGULAR (HUMULIN R) 300UNITS/3ML SUBCUT ONE (20:00)
[2019-09-07 21:48] VITALS: BP 143/66
== END 2019-09-07 21:49 | disposition home or self-care (01) ==
LOC: ER 15:19
DX: E11.65 Type 2 diabetes mellitus with hyperglycemia (principal); I10 Essential (primary) hypertension; Z88.8 Allergy status to other drugs, medicaments and biological substances; Z79.82 Long term (current) use of aspirin; Z98.890 Other specified postprocedural states; Z91.14 Patient's other noncompliance with medication regimen
CPT/HCPCS: 36415; 71045; 80053; 81003; 82962; 83605; 83880; 84484; 85025; 85610; 93005; 96372; 99284; J1815; J7030

== ENCOUNTER 2019-11-10 04:51 | Emergency (ER) | payer MEDICARE, MEDICAID ==
[~2019-11-10] VITALS: Ht 167.6 cm; Wt 80.0 kg
[2019-11-10 07:45] VITALS: BP 194/76
[2019-11-10] MEDS ORDERED: MAGNESIUM CITRATE 300ML SOLUTION PO ONE (08:45)
== END 2019-11-10 09:45 | disposition home or self-care (01) ==
LOC: ER 04:51
DX: K59.00 Constipation, unspecified (principal); R03.0 Elevated blood-pressure reading, without diagnosis of hypertension; Z76.0 Encounter for issue of repeat prescription
CPT/HCPCS: 99283

== ENCOUNTER 2019-11-14 06:37 | Emergency (ER) | payer MEDICARE, MEDICAID ==
[~2019-11-14] VITALS: Ht 170.2 cm; Wt 77.2 kg
[2019-11-14 08:21] LABS: HEMATOCRIT. 36.1 % (42.0-52.0); HEMOGLOBIN. 11.7 g/dL (14.0-18.0); MEAN CORPUSCULAR HEMOGLOBIN 25.7 pg (28.0-32.0); MEAN CORPUSCULAR VOLUME 79.7 fL (80.0-94.0); RED BLOOD CELL COUNT 4.53 mill/uL (4.7-6.1); RED CELL DISTRIBUTION WIDTH 14.9 % (11.6-14.6)
[2019-11-14 08:27] LABS: CHLORIDE 106 mEq/L (98-107)
[2019-11-14 08:54] LABS: PLATELET ESTIMATE NORMAL
[2019-11-14 08:55] LABS: MEAN PLATELET VOLUME 8.1 fl (7.4-10.4); PLATELET 148 x1000/uL (130-400)
[2019-11-14] MEDS ORDERED: ALBUTEROL (0.083%) 2.5MG/3ML NEB HHN STA (09:55)
[2019-11-14 13:00] VITALS: BP 152/78
== END 2019-11-14 13:02 | disposition home or self-care (01) ==
LOC: ER 06:37
DX: J06.9 Acute upper respiratory infection, unspecified (principal); J20.9 Acute bronchitis, unspecified; I11.0 Hypertensive heart disease with heart failure; I50.9 Heart failure, unspecified; E11.9 Type 2 diabetes mellitus without complications; E78.00 Pure hypercholesterolemia, unspecified; Z86.73 Personal history of transient ischemic attack (TIA), and cerebral infarction without residual deficits; Z88.8 Allergy status to other drugs, medicaments and biological substances
CPT/HCPCS: 36415; 71045; 80053; 83880; 84484; 85025; 93005; 94640; 99285

== ENCOUNTER 2020-03-10 18:34 | Inpatient (IN) | payer MEDICARE, MEDICAID ==
[~2020-03-10] VITALS: Ht 167.6 cm; Wt 85.7 kg
[2020-03-10 22:14] LABS: EOSINOPHILS % 1.5 % (0.0-5.0); HEMOGLOBIN. 13.5 g/dL (14.0-18.0); LYMPHOCYTES % 20.1 % (20.0-50.0); MEAN CORPUSCULAR HEMOGLOBIN 26.5 pg (28.0-32.0); MEAN CORPUSCULAR VOLUME 80.4 fL (80.0-94.0); MEAN PLATELET VOLUME 8.7 fl (7.4-10.4); MONOCYTES % 7.4 % (2.0-8.0); PLATELET 220 x1000/uL (130-400); RED CELL DISTRIBUTION WIDTH 14.9 % (11.6-14.6)
[2020-03-11 00:08] LABS: CHLORIDE 104 mEq/L (98-107)
[2020-03-11] MEDS ORDERED: SODIUM CHLORIDE 0.9% 1,000 ML IV ONE (00:52)
[2020-03-11] MEDS ORDERED: AMLODIPINE 5MG TABLET PO ONE (01:00)
[2020-03-11] MEDS ORDERED: ASPIRIN 81MG TABLET PO ONE (01:00)
[2020-03-11] MEDS ORDERED: AMLO5TAB88 PO (08:51)
[2020-03-11] MEDS ORDERED: HYDR100T26 PO (08:51)
[2020-03-11] MEDS ORDERED: LOSA100T32 PO (08:52)
[2020-03-11] MEDS ORDERED: LORA10TA7 PO (08:53)
[2020-03-11] MEDS ORDERED: ATOR10TA69 PO (08:54)
[2020-03-11] MEDS ORDERED: CLOP75TA4 PO (08:54)
[2020-03-11 10:02] VITALS: BP 159/79
[2020-03-11] MEDS ORDERED: HYDRALAZINE HCL 100MG TABLET PO SCH (10:30)
[2020-03-11] MEDS ORDERED: DOCUSATE SODIUM 100MG CAPSULE PO ONE (10:30)
[2020-03-11] MEDS ORDERED: DEXTROSE 50% WATER 50ML SYRINGE IV PRN (10:30)
[2020-03-11] MEDS ORDERED: DOCUSATE SODIUM 100MG CAPSULE PO PRN (10:45)
[2020-03-11] MEDS ORDERED: CLONIDINE 0.1MG TABLET PO PRN (11:15)
[2020-03-11] MEDS: LOSARTAN POTASSIUM 100 MG TABLET PO SCH (11:24)
[2020-03-11 12:00] VITALS: BP 125/61
[2020-03-11] MEDS: INSULIN LISPRO 100 UNITS/ML SUBCUT SCH ×2 (12:47→18:04)
[2020-03-11] MEDS: BLOOD SUGAR DIAGNOSTIC STRIP TEST SCH ×3 (12:47→22:25)
[2020-03-11] MEDS ORDERED: CLONIDINE 0.1MG TABLET PO SCH (14:00)
[2020-03-11] MEDS: ENOXAPARIN 40MG/0.4ML SYR SUBCUT SCH (14:05)
[2020-03-11] MEDS: HYDRALAZINE HCL 100MG TABLET PO SCH ×2 (14:06→21:43)
[2020-03-11] MEDS ORDERED: REGADENOSON 0.4 MG/5 ML IV SCH (15:15)
[2020-03-11 15:38] LABS: BG BASE EXCESS 1.1 mmol/L (-2.0-2.0); BG CARBOXYHEMOGLOBIN 0.8 % (0.5-1.5); BG DEOXYHEMOGLOBIN 8.9 % (0.0-5.0); BG FRACTION INSPIRED OXYGEN 21; BG HCO3 ACT 26.7 mmol/L (22.0-26.0); BG METHEMOGLOBIN 0.3 % (0.0-1.5); BG PCO2 46.2 mmHg (35.0-45.0); BG PH 7.379 (7.350-7.450); BG SAMPLE SITE RIGHT BRACHIAL; BG TOTAL HEMOGLOBIN 12.8 g/dL (12.0-18.0); BG VENT MODE ROOM AIR
[2020-03-11 16:00] VITALS: BP 112/70
[2020-03-11 20:12] VITALS: BP 131/68
[2020-03-11] MEDS: IPRATROPIUM/ALBUTEROL 0.5-3(2.5)MG/3ML NEB HHN SCH (20:20)
[2020-03-11] MEDS ORDERED: ATORVASTATIN CALCIUM 10MG TABLET PO SCH (21:00)
[2020-03-11] MEDS: AMLODIPINE 5MG TABLET PO SCH (21:42)
[2020-03-11] MEDS ORDERED: INSULIN GLARGINE UD 100 UNITS/ML SYR SUBCUT SCH (22:00)
[2020-03-12 00:28] VITALS: BP 131/70
[2020-03-12] MEDS: IPRATROPIUM/ALBUTEROL 0.5-3(2.5)MG/3ML NEB HHN SCH ×2 (01:10→11:20)
[2020-03-12 04:25] VITALS: BP 122/62
[2020-03-12] MEDS: HYDRALAZINE HCL 100MG TABLET PO SCH (05:50)
[2020-03-12] MEDS: INSULIN LISPRO 100 UNITS/ML SUBCUT SCH ×4 (05:51→14:02)
[2020-03-12] MEDS: BLOOD SUGAR DIAGNOSTIC STRIP TEST SCH ×2 (05:59→11:59)
[2020-03-12 06:47] LABS: CHLORIDE 105 mEq/L (98-107)
[2020-03-12 08:00] VITALS: BP 134/79
[2020-03-12] MEDS ORDERED: REGADENOSON 0.4 MG/5 ML IV ONE (08:28)
[2020-03-12] MEDS ORDERED: CLOPIDOGREL 75MG TABLET PO SCH (09:00)
[2020-03-12] MEDS ORDERED: LORATADINE 10MG TABLET PO SCH (09:00)
[2020-03-12] MEDS ORDERED: ASPIRIN 81MG EC TABLET PO SCH (09:00)
[2020-03-12] MEDS: ENOXAPARIN 40MG/0.4ML SYR SUBCUT SCH (10:46)
[2020-03-12] MEDS: LOSARTAN POTASSIUM 100 MG TABLET PO SCH (10:47)
[2020-03-12] MEDS: AMLODIPINE 5MG TABLET PO SCH (10:47)
[2020-03-12] MEDS ORDERED: FAMOTIDINE 20MG TABLET PO SCH (11:15)
[2020-03-12 12:30] VITALS: BP 115/54
[2020-03-12 13:12] VITALS: BP 115/53
[2020-03-15 14:08] LABS: A/G RATIO 1.1 (0.7-1.7); ALBUMIN 3.5 g/dL (2.9-4.4); ALPHA-1-GLOBULIN 0.2 g/dL (0.0-0.4); ALPHA-2-GLOBULIN 0.7 g/dL (0.4-1.0); GAMMA GLOBULINS 1.3 g/dL (0.4-1.8); GLOBULIN TOTAL 3.3 g/dL (2.2-3.9); M-SPIKE Not Observed g/dL (Not Observed); TOTAL PROTEIN SERUM 6.8 g/dL (6.0-8.5)
== END 2020-03-12 16:00 | disposition home or self-care (01) | DRG 293 ==
LOC: ER 18:34 → 6WST 03-11 00:53 → ENRESERV 03-11 07:11
PROVIDERS: ADMIT Internal Medicine Endocrinology, Diabetes & Metabolism; ATTEND Internal Medicine Endocrinology, Diabetes & Metabolism
DX: I13.0 Hypertensive heart and chronic kidney disease with heart failure and stage 1 through stage 4 chronic kidney disease, or unspecified chronic kidney disease (principal); E11.22 Type 2 diabetes mellitus with diabetic chronic kidney disease; E11.51 Type 2 diabetes mellitus with diabetic peripheral angiopathy without gangrene; E11.65 Type 2 diabetes mellitus with hyperglycemia; E78.00 Pure hypercholesterolemia, unspecified; E78.5 Hyperlipidemia, unspecified; I25.10 Atherosclerotic heart disease of native coronary artery without angina pectoris; I50.9 Heart failure, unspecified; N18.3 Chronic kidney disease, stage 3 (moderate); J44.9 Chronic obstructive pulmonary disease, unspecified; Z20.828 Contact with and (suspected) exposure to other viral communicable diseases; Z79.02 Long term (current) use of antithrombotics/antiplatelets; Z79.82 Long term (current) use of aspirin; I25.2 Old myocardial infarction; Z79.899 Other long term (current) drug therapy; Z82.0 Family history of epilepsy and other diseases of the nervous system; Z83.3 Family history of diabetes mellitus; Z86.73 Personal history of transient ischemic attack (TIA), and cerebral infarction without residual deficits; Z87.891 Personal history of nicotine dependence; Z95.5 Presence of coronary angioplasty implant and graft; Z88.8 Allergy status to other drugs, medicaments and biological substances
CPT/HCPCS: 36415; 36600; 71045; 78452; 80048; 80053; 82375; 82533; 82805; 82962; 83036; 83835; 84155; 84165; 84443; 84484; 85025; 93005; 93017; 93970; 99285; A9500; J1650; J1815; J2785; J7030; U0003-CS